=== PATIENT | male | born 1945 | race Caucasian/White ===

== ENCOUNTER 2016-08-26 08:55 | Inpatient (IN) | payer MEDICARE, BC ==
[~2016-08-26] VITALS: Ht 182.9 cm; Wt 102.2 kg
[~2016-08-26 08:55] MED LIST: ACET325S GTB; AMLO5TAB4 GTB; CHLO473M4 MM; CLON-379 PO; DEXT1DRO6 OP; DOXA2TAB61 PO; DULR PR; ENOX120D8 SQ; HYDR-3671 PO; INSU100I22 SC; LACO100T3 PO; LEVE500S9 GTB; LEVO500T72 PO; LOSA50TA2 GTB; MAGN400O4 GTB; METO-407 GTB; MULT-762 GTB; NPH SQ; ONDA4SOL2 GTB; PHEN100O4 GTB; PIPE3.374 IVPB; PSYL3.4P5 PO; SENN-36 GTB; THIA50TA2 PO; UDFER GTB; VANC1VIA16 IV
[2016-08-26] MEDS ORDERED: SOD CHLORIDE 0.9% 500 ML IV STA (09:08)
[2016-08-26] MEDS ORDERED: FAMOTIDINE 20 MG INJ INJ STA (09:08)
[2016-08-26 09:12] VITALS: Ht 182.9 cm; Wt 102.2 kg
[2016-08-26] MEDS ORDERED: NOVO3I SC (09:53)
[2016-08-26] MEDS ORDERED: LATA2.5D9 LEFT EYE (09:53)
[2016-08-26] MEDS ORDERED: HYDR-906 GTB (09:54)
[2016-08-26] MEDS ORDERED: APR50 GTB (09:56)
[2016-08-26] MEDS ORDERED: TEARS BOTH EYES (09:56)
[2016-08-26] MEDS ORDERED: FURO20TA GTB (09:57)
[2016-08-26] MEDS ORDERED: INSU100V3 IJ (09:58)
[2016-08-26] MEDS ORDERED: NPH,100V SQ (09:59)
[2016-08-26] MEDS ORDERED: GABA-526 G-TUBE (09:59)
[2016-08-26] MEDS ORDERED: GABA300C16 GTB (10:00)
[2016-08-26] MEDS ORDERED: IPRA3AMP INHALATION (10:01)
[2016-08-26] MEDS ORDERED: FLUC100T39 GTB (10:01)
[2016-08-26] MEDS ORDERED: SPIR25TA76 GTB (10:02)
[2016-08-26 10:03] LABS: ALBUMIN 3.3 g/dl (3.3-4.9)
[2016-08-26] MEDS ORDERED: ZOLP5TAB6 GTB (10:03)
[2016-08-26 10:04] LABS: INR 1.06; PROTIME 13.8 Sec (12.2-14.2); PT RATIO 1.1
[2016-08-26 10:04] LABS: CHLORIDE 100 mmol/L (97-110); POTASSIUM 4.6 mmol/L (3.5-5.1); SODIUM 141 mmol/L (135-144)
[2016-08-26] MEDS ORDERED: ASCO500C7 GTB (10:04)
[2016-08-26] MEDS ORDERED: MUPI22OI2 TOP (10:04)
[2016-08-26 10:05] LABS: PARTIAL THROMBOPLASTIN TIME 34.4 Sec (25.0-35.0)
[2016-08-26] MEDS ORDERED: CAPS42.510 TOP (10:05)
[2016-08-26 10:06] LABS: BASOPHILS % 0.3 % (0.0-2.0); EOSINOPHILS # 0.2 10^3/ul (0.0-0.5); EOSINOPHILS % 4.1 % (0.0-7.0); HEMATOCRIT 22.5 % (42.0-52.0); HEMOGLOBIN 7.7 g/dl (14.0-18.0); LYMPHOCYTES # 1.1 10^3/ul (0.8-2.9); LYMPHOCYTES % 18.9 % (15.0-51.0); MEAN CORPUSCULAR HEMOGLOBIN 32.9 pg (29.0-33.0); MEAN CORPUSCULAR HGB CONC 34.2 g/dl (32.0-37.0); MEAN CORPUSCULAR VOLUME 96.2 fl (82.0-101.0); MEAN PLATELET VOLUME 7.8 fl (7.4-10.4); MONOCYTE # 0.6 10^3/ul (0.3-0.9); MONOCYTES % 10.7 % (0.0-11.0); NEUTROPHIL # 3.9 10^3/ul (1.6-7.5); PLATELET COUNT 290 10^3/UL (140-440); RED BLOOD COUNT 2.34 10^6/ul (4.70-6.10); RED CELL DISTRIBUTION WIDTH 13.5 % (11.5-14.5); UNCORRECTED WBC 5.8 10^3/ul (4.8-10.8); WHITE BLOOD COUNT 5.8 10^3/ul (4.8-10.8)
[2016-08-26 10:06] LABS: ANION GAP 15 (8-16); ASPARTATE AMINO TRANSFERASE 23 IU/L (15-46); BILIRUBIN,INDIRECT 0.1 mg/dl (0-1.1); BILIRUBIN,TOTAL 0.1 mg/dl (0.2-1.3); CARBON DIOXIDE 31 mmol/L (21-31)
[2016-08-26 10:07] LABS: ALANINE AMINOTRANSFERASE 35 IU/L (13-69); ALKALINE PHOSPHATASE 132 IU/L (42-121); BLOOD UREA NITROGEN 51 mg/dl (7-20); GLUCOSE 251 mg/dl (70-220); TOTAL PROTEIN 6.6 g/dl (6.1-8.1)
[2016-08-26 10:07] LABS: CONDITION 1; LH ANALYZER COMMENTS 1
[2016-08-26 10:21] LABS: TROPONIN-I < 0.010 ng/ml (0.00-0.12)
[2016-08-26] MEDS ORDERED: FER325 GTB (10:40)
[2016-08-26] MEDS ORDERED: SOD CHLORIDE 0.9% 500 ML IV ONE (11:00)
[2016-08-26 11:01] LABS: HEMOGLOBIN 7.6 g/dl (14.0-18.0)
[2016-08-26] MEDS ORDERED: ONDANSETRON 4 MG INJ IV PRN (12:30)
[2016-08-26] MEDS ORDERED: ACETAMINOPHEN 325 MG TAB PO PRN (12:30)
[2016-08-26 13:12] VITALS: TEMP 98.5
--- NOTE | 2016-08-26 13:37 | ERA ---
ER Documentation Chief Complaint Date/Time DATE: 08/26/16 TIME: 13:19 Chief Complaint BROUGHT IN VIA PRIVATE AMBULANCE DUE TO LOW HGB RESULTS HPI This 71-year-old male is a chronic trach mask patient was sent in by both the [facility] & [facility]. Patient has been feeling generalized weakness and tiredness. Denies chest pain shortness of breath fever and chills. Has a chronic cough. Denies vomiting blood, denies blood in stools and dark stools. ROS All systems reviewed and are negative except as per history of present illness. Medications Home Meds Reported Medications Ferrous Sulfate* (Ferrous Sulfate*) 325 Mg Tabec, 325 MG GTB BID, TAB 08/26/16 Capsaicin (Capsaicin) 42.5 Gm Cream.gm., 1 APPLIC TOP DAILY, #1 TUB 08/26/16 Mupirocin* (Bactroban*) 2% -22 Gram Oint...g., 1 APPLIC TOP DAILY, #1 TUB SITE OF APPLICATION: 08/26/16 Ascorbic Acid* (Vitamin C*) 500 Mg Capsule.sa, 500 MG GTB DAILY, CAP 08/26/16 Zolpidem Tartrate* (Zolpidem Tartrate*) 5 Mg Tablet, 5 MG GTB QHS Y for INSOMNIA , #30 TAB 08/26/16 Spironolactone* (Aldactone*) 25 Mg Tablet, 12.5 MG GTB DAILY, #30 TAB 08/26/16 Fluconazole* (Fluconazole*) 100 Mg Tablet, 100 MG GTB DAILY, TAB 08/26/16 Ipratropium-Albuterol (Ipratropium-Albuterol) 0.5-3 Mg/3 Ml Ampul.neb, 3 ML INHALATION Q4 Y for WHEEZING AND SOB, #30 VIAL 08/26/16 Gabapentin* (Gabapentin*) 300 Mg Capsule, 300 MG GTB QHS, #60 CAP 08/26/16 Gabapentin* (Gabapentin*) 600 Mg Tablet, 600 MG G-TUBE DAILY, #60 TAB 08/26/16 Insulin NPH Human Isophane (Humulin N) 100 Unit/1 Ml Vial, 19 UNIT SQ Q8, VIAL 08/26/16 Insulin Regular, Human (Humulin R) 100 Unit/1 Ml Vial, 0 IJ SLIDING SCALE DIR , VIAL 08/26/16 Furosemide* (Lasix*) 20 Mg Tablet, 20 MG GTB DAILY, TAB 08/26/16 Hydralazine Hcl* (Hydralazine Hcl*) 50 Mg Tab, 50 MG GTB Q8, #90 TAB 08/26/16 Hypromellose* (Isopto Tears*) 15 Ml Drops, 2 DROP BOTH EYES Q4H WHILE AWAKE Y for PRN, #1 EA 08/26/16 Hydrocodone/Acetaminophen (Luverne 5-325 Tablet) 1 Each Tablet, 2 EACH GTB Q6 Y for PAIN, TAB 08/26/16 Insulin Aspart* (Novolog Insulin Pen*) 100 Unit/Ml Soln, 0 SC .SLIDING SCALE AC , EA DIRECTED 08/26/16 Latanoprost (Xalatan) 2.5 Ml Drops, 1 DROP LEFT EYE QHS, #1 BOTTLE 08/26/16 Sennosides* (Senokot*) 8.6 Mg Tablet, 1 TAB GTB DAILY Y for CONSTIPATION, TAB 06/14/16 Phenytoin* (Dilantin* Susp) 100 Mg/4 Ml Oral.susp, 250 MG GTB Q12 for 30 Days, BOTTLE 06/14/16 Ondansetron HCl (Zofran) 4 Mg/5 Ml Solution, 4 MG GTB Q8 Y for NAUSEA 06/14/16 Multivitamin (MULTI-VITAMIN DAILY) 1 Each Tablet, 1 TAB GTB DAILY, TAB 06/14/16 Metoprolol Tartrate* (Lopressor*) 100 Mg Tablet, 100 MG GTB BID, #60 TAB 06/14/16 Magnesium Hydroxide* (Milk Of Magnesia*) 400 Mg/5 Ml Oral.susp, 30 ML GTB DAILY Y for CONSTIPATION, ML 06/14/16 Losartan Potassium* (Cozaar*) 50 Mg Tablet, 50 MG GTB DAILY, #30 TAB 06/14/16 Levetiracetam* (Keppra*) 500 Mg/5 Ml Solution, 2000 MG GTB BID, BOTTLE 06/14/16 Doxazosin Mesylate* (Cardura*) 2 Mg Tablet, 2 MG PO QHS, #30 TAB 06/14/16 Chlorhexidine Gluconate (Peridex) 473 Ml Mouthwash, 10 ML MM BID, BOTTLE 06/14/16 Bisacodyl* (Bisacodyl*) 10 Mg Supp, 10 MG IL DAILY Y for CONSTIPATION, SUPP 06/14/16 Amlodipine Besylate* (Norvasc*) 5 Mg Tablet, 5 MG GTB DAILY, TAB 06/14/16 Acetaminophen* (Acetaminophen* Susp) 325 Mg/10.15 Ml Solution, 650 MG GTB Q6 Y for PAIN OR TEMP ABOVE 38C, ML 06/14/16 Discontinued Reported Medications Rvsgmyuyemav-Krhv-Newrvchf,Iso (ZOSYN 3.375 GM GALAXY BAG) 3.375 Gm/50 Ml Froz.piggy, 3.375 GM IVPB Q8, EA 06/14/16 Vancomycin Hcl (Vancocin) 1 Gm Soln, 1.5 GM IV Q12, VIAL 06/14/16 Thiamine HCl (Thiamine HCl) 50 Mg Tablet, 100 MG PO DAILY, TAB 06/14/16 Psyllium Husk-Aspartame (Metamucil Fiber Singles Packet) 3.4 Gm Powd.pack, 3.4 GM PO TID, PACKET 06/14/16 Insulin Human Nph (Novolin-N) 100 Units/Ml Susp, 16 SQ Q8 06/14/16 Levofloxacin* (Levaquin*) 500 Mg Tablet, 500 MG PO DAILY, TAB 06/14/16 Lacosamide (Vimpat) 100 Mg Tablet, 300 MG PO BID, TAB 06/14/16 Insulin Aspart (Novolog FlexPen) 100 Unit/1 Ml Insuln.pen, 0 SC SLIDING SCALE AC , EA 06/14/16 Hydralazine Hcl* (Hydralazine Hcl*) 25 Mg Tab, 25 MG PO Q8, #90 TAB 06/14/16 Ferrous Sulfate (Ferrous Sulfate) 300 Mg/5 Ml Liquid, 300 MG GTB DAILY 06/14/16 Enoxaparin Sodium* (Lovenox*) 120 Mg/0.8 Ml Disp.syrin, 110 MG SQ BID, SYR 06/14/16 Clonidine Hcl* (Clonidine Hcl*) 0.1 Mg Tab, 0.1 MG PO Q8 Y for ELEVATED BLOOD PRESSURE, TAB 06/14/16 Dextran 70/Hypromellose (Artificial Tears) 1 Each Droperette, 2 EACH OP Q4 Y for DRY EYES 06/14/16 Allergies Allergies: Coded Allergies: No Known Allergies (Unverified Allergy, Unknown, 08/26/16) PMhx/Soc History of Surgery: No Anesthesia Reaction: No Hx Neurological Disorder: Yes (seizures/CVA,peripheral neuropathy) Hx Respiratory Disorders: Yes (Resp failure,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 Neck: Full range of motion..~ No meningismus. Trachea mask in place, clean dry intact Resp: Clear to auscultation bilaterally with cough son exam Cardio: Regular rate and rhythm, no murmurs Abd: Soft, non tender, non distended. Normal bowel sounds Skin: No petechiae or rashes Back: No midline or flank tenderness Ext: No cyanosis, or edema Neur: Awake and alert and oriented 3, cranial nerves II through XII intact, no focal deficits Psych: Normal Mood and Affect Result Diagram: 08/26/16 1040 08/26/16 0948 Results 24 hrs Laboratory Tests Test 08/26/16 09:45 08/26/16 09:48 08/26/16 10:40 Activated Partial Thromboplast Time 34.4Sec Basophils # 0.010^3/ul Basophils % 0.3% Blood Morphology Comment Eosinophils # 0.210^3/ul Eosinophils % 4.1% Hematocrit 22.5% 22.0% Hemoglobin 7.7g/dl 7.6g/dl INR International Normalized Ratio 1.06 Lymphocytes # 1.110^3/ul Lymphocytes % 18.9% Mean Corpuscular Hemoglobin 32.9pg Mean Corpuscular Hemoglobin Concent 34.2g/dl Mean Corpuscular Volume 96.2fl Mean Platelet Volume 7.8fl Monocytes # 0.610^3/ul Monocytes % 10.7% Neutrophils # 3.910^3/ul Neutrophils % 66.0% Nucleated Red Blood Cells # 0.010^3/ul Nucleated Red Blood Cells % 0.0/100WBC Platelet Count 49286^3/UL Prothrombin Time 13.8Sec Prothrombin Time Ratio 1.1 Red Blood Count 2.3410^6/ul Red Cell Distribution Width 13.5% White Blood Count 5.810^3/ul Alanine Aminotransferase (ALT/SGPT) 35IU/L Albumin 3.3g/dl Albumin/Globulin Ratio 1.00 Alkaline Phosphatase 132IU/L Anion Gap 15 Aspartate Amino Transf (AST/SGOT) 23IU/L Blood Urea Nitrogen 51mg/dl Calcium Level 9.0mg/dl Carbon Dioxide Level 31mmol/L Chloride Level 100mmol/L Creatinine 1.00mg/dl Direct Bilirubin 0.00mg/dl Globulin 3.30g/dl Glucose Level 251mg/dl Indirect Bilirubin 0.1mg/dl Potassium Level 4.6mmol/L Sodium Level 141mmol/L Total Bilirubin 0.1mg/dl Total Protein 6.6g/dl Troponin I < 0.010ng/ml Current Medications Medications (Trade) Dose Ordered Sig/Nelli Route PRN Reason Start Time Stop Time Status Last Admin Dose Admin Sodium Chloride (NS) 500 ml @ 500 mls/hr Q1H STAT IV 08/26/16 09:08 08/26/16 10:07 DC 08/26/16 10:02 Famotidine 20 mg 20 mg ONCE STAT INJ 08/26/16 09:08 08/26/16 09:09 DC 08/26/16 10:02 Sodium Chloride (NS) 500 ml @ 500 mls/hr Q1H ONCE IV 08/26/16 11:00 08/26/16 11:59 DC 08/26/16 10:44 Ondansetron HCl (Zofran Inj) 4 mg BRIDGE ORDER PRN IV NAUSEA AND/OR VOMITING 08/26/16 12:30 08/27/16 12:29 Acetaminophen (Tylenol Tab) 650 mg ER BRIDGE PRN PO MILD PAIN/FEVER 08/26/16 12:30 08/27/16 12:29 Procedures/MDM 71-year-old male with acute symptomatic anemia. He was given a liter of IV fluid in the emergency room. Hemoglobin returned at 7.7 7.6. Patient has had prior hemoglobins well above 9 is also hemoglobins in the eights. He was given IV Pepcid. Patient himself is not sure why he has the anemia. Spoke with Dr. Comer who is very familiar with the patient believe he should be transfused 2 units and admitted to the hospital. He recommends MedSurg. Patient has been stable on the monitor and has no signs of acute decompensating GI bleed. Elevated BUN does give evidence that there is a GI source of bleeding. He'll be admitted for further workup of his GI bleeding. Patient did require deep suctioning one time by respiratory after which his cough improved he is feeling much better about his cough. EKG interpretation: Normal sinus rhythm rate of 86, right bundle branch block, left axis deviation, no ST-T wave changes concerning for acute ischemia surveillance monitor interpretation: Normal sinus rhythm with occasional sinus tachycardia with no other arrhythmia Critical care time 30 minutes: This includes treatment of acute symptomatically anemia with blood transfusion, multiple visits patient's bedside before and after transfusion assess status, chart review, discussion with patient and , discussion with admitting doctor, careful fluid resuscitation and monitoring for signs of fluid overload with blood transfusion. This does not include any below procedures. Departure Diagnosis: Primary Impression: Symptomatic anemia Additional Impressions: Hyperglycemia Acute GI bleeding Condition: Serious YARELI HUDDLESTON DO Aug 26, 2016 13:34
[2016-08-26 13:57] VITALS: BP 137/78; RESP 18
[2016-08-26] MEDS: ALBUTEROL/IPRATROPIUM (NEB) 3 ML AMP HHN SCH ×2 (15:17→20:33)
[2016-08-26] MEDS ORDERED: NACL 0.9% 3 ML SYG IV SCH (16:00)
[2016-08-26] MEDS ORDERED: ALBUTEROL/IPRATROPIUM (NEB) 3 ML AMP INH PRN (16:00)
[2016-08-26] MEDS: D5W-0.45 NACL + KCL 20 MEQ 1,000 ML IV SCH (16:00)
--- NOTE | 2016-08-26 16:57 | HP ---
DATE OF ADMISSION: 08/26/2016 HISTORY OF PRESENT ILLNESS: The patient is a 71-year-old gentleman patient with a past medical hist ory positive for COPD, epilepsy, congestive heart failure, hyperlipidemia, hypertension, and diabete s mellitus. He has respiratory distress with tracheostomy and dysphagia with PEG. The patient was brought to the emergency room from [facility] for hemoglobin of 7.2 noted on routine l abs. The patient also stated that he feels generalized weakness and tiredness. The patient stated that for the last week he has been able to take food p.o.; however, the patient has a gastrostomy. It was stated he was previously fed through a G-tube. The patient also had a tracheostomy; however, he was on room air. The patient also noted to have increased secretions. The patient denied any f ever or chills, denies any nausea and vomiting. The patient has a Passy-Minden valve and was able to provide a limited history. The patient was ordered blood transfusion and was given IV Pepcid, and t he patient on IV fluids, and the patient will be admitted for further evaluation and management to m edical/surgical floor. PAST MEDICAL HISTORY: Per HPI. The patient also had seizures and previous history of stroke and pe ripheral neuropathy, congestive heart failure, respiratory failure, encephalopathy. PAST SURGICAL HISTORY: The patient is status post tracheostomy, status post gastrostomy. SOCIAL HISTORY: The patient is a resident of [facility], [facility]. The patien t is a former smoker; currently does not smoke. He does not use alcohol or drugs. ALLERGIES: NO KNOWN ALLERGIES. MEDICATIONS ON ADMISSION: 1. Ferrous sulfate. 2. Capsaicin. 3. Bactroban. 4. Vitamin C. 5. Ambien. 6. Aldactone. 7. Fluconazole. 8. Albuterol. 9. Gabapentin. 10. Humulin 19 units subq q. 8 hours. 11. Lasix. 12. Hydralazine. 13. Hypromellose. 14. Gould. 15. NovoLog. 16. Tarlatan. 17. Senokot. 18. Dilantin. 19. Zofran. 20. Multivitamins. 21. Lopressor. 22. Milk of magnesia. 23. Cozaar 24. Keppra. 25. Cardura. 26. Peridex. 27. Bisacodyl. 28. Norvasc. 29. Tylenol. REVIEW OF SYSTEMS: A 12-point review of systems is negative unless what mentioned in the HPI. PHYSICAL EXAMINATION: GENERAL: Well-developed, well-nourished male who currently is awake, alert. VITAL SIGNS: Temperature is 98.6, pulse is 93, blood pressure 137/78, respiratory rate 18, oxygen s aturation 98% on cool aerosol mist 28%. HEENT: Head is atraumatic, normocephalic. PERRLA. NECK: Supple. The patient has a tracheostomy at the base of the neck with Passy-Onur valve. CHEST: Lung sounds are slightly diminished at the bases. Scattered rhonchi bilaterally. CARDIOVASCULAR: Normal S1, S2. No murmurs, gallops, clicks, rubs noted. ABDOMEN: Round, soft, nondistended, and nontender. The patient has a G-tube with intact stoma. EXTREMITIES: No edema, clubbing, cyanosis. Pulses equal bilaterally 2+. SKIN: There is no rash noted. NEUROLOGIC: The patient is awake, alert to name and situation. LABORATORY DATA: Today, CBC: White blood cells 5.8, hemoglobin 7.7, hematocrit 22.5, platelets 290 . Chemistry: Sodium is 141, potassium 4.6, chloride 100, carbon dioxide 31, anion gap 15, BUN is 5 1, creatinine 1, glucose 251, calcium 9.0, AST is 23, ALT is 35, alkaline phosphatase 132. Troponin less than 0.01. PT is 13.8. INR is 1.06. PTT is 34.4. ASSESSMENT AND PLAN: 1. Anemia, rule out gastrointestinal bleed. We will transfuse 2 units of packed red blood cells, o btain stool for OB. We will ask Dr. Troy to see the patient in gastroenterology consultation. Co ntinue patient on Protonix. 2. History of respiratory failure with tracheostomy. We will continue cool aerosol mist, continue trach care, and pulmonary toilet. 3. Congestive heart failure. Continue patient on Lasix. 4. Diabetes mellitus type 2. Continue patient's home NovoLog. 5. History of cerebrovascular accident and seizure disorder. Continue Keppra and Dilantin. 6. We will continue breathing treatment. 7. Sequential compression devices for deep venous thrombosis prophylaxis. Further recommendations based on clinical course. Plan of care discussed with Dr. Comer. Dictated By: VIRGEN MARCUS INSURANCE SALES SPECIALIST for ETHAN COMER MD SR/NTS Conf#: [id number] DID#: [id number]
--- NOTE | 2016-08-26 18:44 | CONS ---
DATE OF ADMISSION: 08/26/2016 DATE OF CONSULTATION: TYPE OF CONSULTATION: Gastroenterology. Dear Dr. Comer: Thank you for asking me to see Mr. Falcon in GI consultation. HISTORY OF PRESENT ILLNESS: As you know, the patient is a 71-year-old white gentleman who was trans ferred to the [facility] from [facility]. He has got hemog lobin of 7.2 and because of that, he is being transfused. WBC is 5214, platelet count 275. He is alert and has got tracheostomy. Other medical problems include diabetes, transient ischemic a ttacks or possible CVA, paraplegia, nonspecific heart disease, urinary tract infection in the past. He has difficulty walking. MEDICATIONS: Prior to the admission includes: 1. Bactrim 2. Fluconazole. Please review the chart for more information. He also has been on: 1. Zofran. 2. Multivitamin. 3. Senna. 4. NovoLog. 5. Norvasc. 6. Lasix. 7. Keppra. 8. Hydralazine. 9. Gabapentin. PHYSICAL EXAMINATION: GENERAL: The patient is a 71-year-old white gentleman who at this time is alert. He is status post tracheostomy. He is on ventilator. VITAL SIGNS: Pulse is 76, blood pressure is 122/82. CARDIOVASCULAR: Normal heart sounds. RESPIRATORY: Normal breath sounds. ABDOMEN: Showed a soft abdomen with no palpable masses. He has got a G-tube in place. LABORATORY WORKUP: Essentially as I mentioned earlier on. CLINICAL IMPRESSION: 1. Severe anemia due to reasons unknown etiology, rule out bleeding from the peptic ulcer disease o r gastrostomy site ulcer disease. 2. Rule out gastrointestinal malignancy. 3. Chronic obstructive pulmonary disease, respiratory failure, currently intubated through the trac heostomy. Diabetes, neuropathy, arteriosclerotic heart disease. PLAN: 1. At this time, I would recommend upper endoscopy as well as lower endoscopy. 2. Continue Protonix and continue with transfusion. Once again, doctor, thank you for this consultation. Dictated By: GANESH BOOGIE/MARIO Conf#: [id number] DID#: [id number] CC: ETHAN COMER MD;*EndCC*
[2016-08-26 19:48] VITALS: BP 140/65; RESP 16
[2016-08-26] MEDS ORDERED: GABAPENTIN 300 MG CAP GTB SCH (21:00)
[2016-08-26] MEDS: LEVETIRACETAM (100 MG/ML) 5ML CUP GTB SCH (21:22)
[2016-08-26] MEDS: PHENYTOIN (100 MG/4 ML) CUP GTB SCH (21:23)
[2016-08-26] MEDS: METOPROLOL 100 MG TAB GTB SCH (21:25)
[2016-08-26] MEDS: GABAPENTIN (50 MG/ML PO SYG) GTB SCH (21:26)
[2016-08-26] MEDS ORDERED: ZOLPIDEM 5 MG TAB GTB PRN (23:00)
[2016-08-26] MEDS: MUPIROCIN 2% 22 GM OINT TOP SCH (23:59)
[2016-08-27] MEDS: ALBUTEROL/IPRATROPIUM (NEB) 3 ML AMP HHN SCH ×4 (01:46→19:25)
[2016-08-27] MEDS: D5W-0.45 NACL + KCL 20 MEQ 1,000 ML IV SCH (02:05)
[2016-08-27 06:20] LABS: BASOPHILS % 0.5 % (0.0-2.0); EOSINOPHILS # 0.2 10^3/ul (0.0-0.5); EOSINOPHILS % 3.7 % (0.0-7.0); HEMOGLOBIN 8.6 g/dl (14.0-18.0); LYMPHOCYTES % 17.1 % (15.0-51.0); MEAN CORPUSCULAR HEMOGLOBIN 32.4 pg (29.0-33.0); MEAN CORPUSCULAR HGB CONC 34.2 g/dl (32.0-37.0); MEAN CORPUSCULAR VOLUME 94.5 fl (82.0-101.0); MEAN PLATELET VOLUME 8.1 fl (7.4-10.4); MONOCYTE # 0.6 10^3/ul (0.3-0.9); MONOCYTES % 10.1 % (0.0-11.0); NEUTROPHIL # 4.2 10^3/ul (1.6-7.5); NEUTROPHILS % 68.6 % (39.0-77.0); PLATELET COUNT 248 10^3/UL (140-440); RED BLOOD COUNT 2.64 10^6/ul (4.70-6.10); RED CELL DISTRIBUTION WIDTH 14.9 % (11.5-14.5); UNCORRECTED WBC 6.1 10^3/ul (4.8-10.8); WHITE BLOOD COUNT 6.1 10^3/ul (4.8-10.8)
[2016-08-27 06:24] LABS: POTASSIUM 4.3 mmol/L (3.5-5.1)
[2016-08-27 06:26] LABS: CREATININE 0.74 mg/dl (0.61-1.24)
[2016-08-27 06:27] LABS: CALCIUM 8.6 mg/dl (8.4-10.2)
[2016-08-27 06:46] LABS: CONDITION 1; LH ANALYZER COMMENTS 1
[2016-08-27 07:38] VITALS: BP 154/67; RESP 22
[2016-08-27] MEDS ORDERED: GABAPENTIN 300 MG CAP PEG SCH (09:00)
[2016-08-27] MEDS: ASCORBIC ACID 500 MG TAB GTB SCH (10:34)
[2016-08-27] MEDS: FLUCONAZOLE 100 MG TAB GTB SCH (10:34)
[2016-08-27] MEDS: LEVETIRACETAM (100 MG/ML) 5ML CUP GTB SCH ×2 (10:34→21:04)
[2016-08-27] MEDS: PHENYTOIN (100 MG/4 ML) CUP GTB SCH ×2 (10:35→21:02)
[2016-08-27] MEDS: FUROSEMIDE 20 MG TAB GTB SCH (10:36)
[2016-08-27] MEDS: AMLODIPINE 5 MG TAB GTB SCH (10:36)
[2016-08-27] MEDS: SPIRONOLACTONE 25 MG TAB GTB SCH (10:36)
[2016-08-27] MEDS: METOPROLOL 100 MG TAB GTB SCH ×2 (10:36→21:04)
[2016-08-27] MEDS: MUPIROCIN 2% 22 GM OINT TOP SCH (10:37)
[2016-08-27 10:57] VITALS: BP 146/64; PULSE 84
[2016-08-27] MEDS ORDERED: DEXTROSE 50% 50 ML SYRINGE IV PRN ×2 (11:30)
[2016-08-27] MEDS ORDERED: GLUCOSE GEL 15 GRAM TUBE PO PRN ×2 (11:30)
[2016-08-27] MEDS ORDERED: GLUCAGON 1 MG INJ IM PRN (11:30)
[2016-08-27] MEDS ORDERED: ONDANSETRON (2 MG/2.5 ML PO SYG) GTB PRN (11:30)
[2016-08-27] MEDS ORDERED: HYDROCODONE/APAP (5/325) TAB GTB PRN (11:30)
[2016-08-27] MEDS ORDERED: MAGNESIUM HYDROXIDE 30ML CUP GTB PRN (11:30)
[2016-08-27] MEDS ORDERED: GLUCOSE GEL 15 GRAM TUBE BUCCAL PRN (11:30)
[2016-08-27] MEDS ORDERED: BISACODYL 10 MG SUPP PR PRN (11:30)
[2016-08-27] MEDS ORDERED: SENNA TAB GTB PRN (11:30)
[2016-08-27] MEDS ORDERED: HYPROMELLOSE 0.5% 15 ML OPH BOTH EYES PRN (11:30)
--- NOTE | 2016-08-27 12:42 | RADRPT ---
PROCEDURE: XR Chest. CLINICAL INDICATION: Shortness of breath. TECHNIQUE: Single frontal view. COMPARISON: 07/20/2016. FINDINGS: The tracheostomy tube is in satisfactory position. There is mild atelectasis at the left lung base. Mild pulmonary edema is unchanged. The lungs are otherwise clear. The heart is enlarged. There is calcification in the aorta consistent with atherosclerosis. There is no pleural effusion. There is no pneumothorax. IMPRESSION: 1. Mild atelectasis at the left lung base. 2. No other change from 07/20/2016. RPTAT: QQ .Julius Gupta MD, MD Date Time Electronically viewed and signed by .Julius Gupta MD, on 08/27/2016 12:42 .R/
[2016-08-27] MEDS: GABAPENTIN (50 MG/ML PO SYG) GTB SCH ×2 (13:11→22:35)
[2016-08-27] MEDS: INSULIN ASPART [NOVOLOG] 3 ML PEN SC SCH ×3 (13:20→21:08)
[2016-08-27] MEDS: 1/2 NS + KCL 20 MEQ 1,000 ML IV SCH (13:21)
[2016-08-27 13:23] VITALS: BP 140/65; PULSE 77
--- NOTE | 2016-08-27 17:15 | CONS ---
DATE OF ADMISSION: 08/26/2016 DATE OF CONSULTATION: Patient has a severe anemia. No history of vomiting, nor bright red bleeding from the rectum. PHYSICAL EXAMINATION: GENERAL: The patient is on a trach. He is alert, not in distress. ABDOMEN: Showed a G-tube in place. CLINICAL IMPRESSION: Severe anemia, rule out peptic ulcer disease, rule out malignancy of the gastr ointestinal tract. PLAN: EGD and colonoscopy on Monday. Dictated By: GANESH BOOGIE/MARIO Conf#: [id number] DID#: [id number]
[2016-08-27] MEDS ORDERED: PEG/ELECTROLYTES 4L BTL PO ONE (18:30)
[2016-08-27 20:05] VITALS: BP 163/71; RESP 20
[2016-08-27] MEDS: LATANOPROST 0.005% 2.5 ML OPH LEFT EYE SCH (21:05)
[2016-08-27] MEDS: FERROUS SULFATE (EC) 325 MG TAB PO SCH (21:05)
[2016-08-27] MEDS: CHLORHEXIDINE GLUCONATE 15 ML UD CUP MM SCH (21:05)
[2016-08-27] MEDS: DOXAZOSIN 2 MG TAB PO SCH (21:05)
[2016-08-27] MEDS: INSULIN GLARGINE [LANtus] 3 ML PEN SC SCH (21:07)
[2016-08-28] VITALS (8 sets, daily range): BP systolic 127–174; BP diastolic 58–97; PULSE 76–88; RESP 16–20
[2016-08-28] MEDS: ALBUTEROL/IPRATROPIUM (NEB) 3 ML AMP HHN SCH ×4 (01:49→20:33)
[2016-08-28] MEDS: ACCUCHECK XX SCH (02:00)
[2016-08-28] MEDS: 1/2 NS + KCL 20 MEQ 1,000 ML IV SCH ×2 (03:07→16:36)
[2016-08-28] MEDS: INSULIN ASPART [NOVOLOG] 3 ML PEN SC SCH ×4 (08:26→21:24)
[2016-08-28] MEDS: FERROUS SULFATE (EC) 325 MG TAB PO SCH ×2 (09:41→21:19)
[2016-08-28] MEDS: FLUCONAZOLE 100 MG TAB GTB SCH (09:41)
[2016-08-28] MEDS: MULTIVITAMINS THERAPEUTIC TAB GTB SCH (09:41)
[2016-08-28] MEDS: ASCORBIC ACID 500 MG TAB GTB SCH (09:41)
[2016-08-28] MEDS: AMLODIPINE 5 MG TAB GTB SCH (09:41)
[2016-08-28] MEDS: FUROSEMIDE 20 MG TAB GTB SCH (09:42)
[2016-08-28] MEDS: LOSARTAN 50 MG TAB GTB SCH (09:42)
[2016-08-28] MEDS: CHLORHEXIDINE GLUCONATE 15 ML UD CUP MM SCH ×2 (09:43→21:17)
[2016-08-28] MEDS: LEVETIRACETAM (100 MG/ML) 5ML CUP GTB SCH ×2 (09:43→21:17)
[2016-08-28] MEDS: PHENYTOIN (100 MG/4 ML) CUP GTB SCH ×2 (09:43→21:19)
[2016-08-28] MEDS: GABAPENTIN (50 MG/ML PO SYG) GTB SCH ×2 (09:45→21:48)
[2016-08-28] MEDS: SPIRONOLACTONE 25 MG TAB GTB SCH (09:45)
[2016-08-28] MEDS: METOPROLOL 100 MG TAB GTB SCH ×2 (09:47→21:19)
[2016-08-28] MEDS: MUPIROCIN 2% 22 GM OINT TOP SCH (09:58)
--- NOTE | 2016-08-28 11:10 | PN ---
Date/Time of Note Date/Time of Note DATE: 08/28/16 TIME: 10:59 Assessment/Plan Lines/Catheters IV C[facility]ter Type (from [facility]): Peripheral IV Urinary Cath still in place: Yes Assessment/Plan Assessment/Plan 1. Anemia, rule out gastrointestinal bleed. We will transfuse 2 units of packed red blood cells, obtain stool for OB. We will ask Dr. Troy to see the patient in gastroenterology consultation. Continue patient on Protonix. 2. History of respiratory failure with tracheostomy. We will continue cool aerosol mist, continue trach care, and pulmonary toilet. 3. Congestive heart failure. Continue patient on Lasix. 4. Diabetes mellitus type 2. Continue patient's home NovoLog. 5. History of cerebrovascular accident and seizure disorder. Continue Keppra and Dilantin. 6. We will continue breathing treatment. 7. Sequential compression devices for deep venous thrombosis prophylaxis. Further recommendations based on clinical course. Plan of care discussed with Dr. Comer. Subjective 24 Hr Interval Summary Free Text/Dictation LATE ENTRY- 08/27/2016. NAD, Endoscopy cancelled today. no obvious bleeding noted. dw staff. Constitutional: requiring IVF, requiring O2 Exam/Review of Systems Vital Signs Vitals Vital Signs Date Time Temp Pulse Resp B/P Pulse Ox O2 Delivery O2 Flow Rate FiO2 08/28/16 10:03 88 149/67 08/28/16 08:46 20 98 Aerosol 28 T Tube 08/28/16 08:01 98.7 08/28/16 01:50 5.0 Intake and Output 08/27/16 08/27/16 08/28/16 15:00 23:00 07:00 Intake Total 595 ml 2370 ml 604 ml Output Total 900 ml 1000 ml Balance 595 ml 1470 ml -396 ml Exam Constitutional: non-verbal Psych: confusion Eyes: nl sclera ENMT: nl external ears & nose Neck: non-tender Respiratory: diminished breath sounds Cardiovascular: nl pulses Gastrointestinal: non-tender, other, soft Musculoskeletal: other Extremities: normal pulses Neurological: lethargic Lymph: nontender Results Result Diagram: 08/27/16 0520 08/27/16 0455 Results 24 hrs Laboratory Tests Test 08/27/16 11:52 08/27/16 17:13 08/27/16 21:01 08/28/16 02:58 Bedside Glucose 274 H 257 H 241 H 208 Test 08/28/16 07:47 Bedside Glucose 211 Medications Medications Current Medications Amlodipine Besylate (Norvasc) 5 mg DAILY GTB Last administered on 08/28/16 09: 41; Admin Dose 5 MG; Start 08/27/16 at 09:00 Ascorbic Acid (Vitamin C) 500 mg DAILY GTB Last administered on 08/28/16 09:41 ; Admin Dose 500 MG; Start 08/27/16 at 09:00 Fluconazole (Diflucan) 100 mg DAILY GTB Last administered on 08/28/16 09:41; Admin Dose 100 MG; Start 08/27/16 at 09:00 Furosemide (Lasix) 20 mg DAILY GTB Last administered on 08/28/16 09:42; Admin Dose 20 MG; Start 08/27/16 at 09:00 Levetiracetam (Keppra Liquid) 2,000 mg BID GTB Last administered on 08/28/16 09:43; Admin Dose 2,000 MG; Start 08/26/16 at 21:00 Metoprolol Tartrate (Lopressor) 100 mg BID GTB Last administered on 08/28/16 09:47; Admin Dose 100 MG; Start 08/26/16 at 21:00 Mupirocin (Bactroban) APPLY TO NARES DAILY TOP Last administered on 08/28/16 09:58; Admin Dose 1 APPLIC; Start 08/26/16 at 23:59 Phenytoin (Dilantin Susp Cup) 250 mg Q12 GTB Last administered on 08/28/16 09: 43; Admin Dose 250 MG; Start 08/26/16 at 21:00 Spironolactone (Aldactone) 12.5 mg DAILY GTB Last administered on 08/28/16 09: 45; Admin Dose 12.5 MG; Start 08/27/16 at 09:00 Gabapentin (Neurontin Liquid) 300 mg QHS GTB Last administered on 08/27/16 22: 35; Admin Dose 300 MG; Start 08/26/16 at 21:00 Gabapentin (Neurontin Liquid) 600 mg DAILY GTB Last administered on 08/28/16 09:45; Admin Dose 600 MG; Start 08/27/16 at 09:00 Acetaminophen (Tylenol Liquid) 650 mg Q6 PRN GTB PAIN OR TEMP ABOVE 38C; Start 08/27/16 at 11:30 Bisacodyl (Dulcolax Supp) 10 mg DAILY PRN ND CONSTIPATION; Start 08/27/16 at 11 :30 Chlorhexidine Gluconate (Peridex) 10 ml BID MM Last administered on 08/28/16 09:43; Admin Dose 10 ML; Start 08/27/16 at 21:00 Doxazosin Mesylate (Cardura) 2 mg QHS PO Last administered on 08/27/16 21:05; Admin Dose 2 MG; Start 08/27/16 at 21:00 Ferrous Sulfate (Ferrous Sulfate (Ec)) 325 mg BID PO Last administered on 09:41; Admin Dose 325 MG; Start 08/27/16 at 21:00 Hydralazine HCl (Apresoline) 50 mg Q8 GTB Last administered on 08/28/16 05:25 ; Admin Dose 50 MG; Start 08/27/16 at 14:00 Acetaminophen/ Hydrocodone Bitart ([place] (5/325)) 1 tab Q6 PRN GTB PAIN; Start 08/27/16 at 11:30 Latanoprost (Xalatan) 1 drop QHS LEFT EYE Last administered on 08/27/16 21:05 ; Admin Dose 1 DROP; Start 08/27/16 at 21:00 Losartan Potassium (Cozaar) 50 mg DAILY GTB Last administered on 08/28/16 09: 42; Admin Dose 50 MG; Start 08/28/16 at 09:00 Magnesium Hydroxide (Milk Of Mag) 30 ml DAILY PRN GTB CONSTIPATION; Start 08/27 at 11:30 Multivitamins Therapeutic (Theragran) 1 tab DAILY GTB Last administered on 08/28 09:41; Admin Dose 1 TAB; Start 08/28/16 at 09:00 Ondansetron HCl (Zofran (Ped)) 4 mg Q8 PRN GTB NAUSEA; Start 08/27/16 at 11:30 Senna (Senokot) 1 tab DAILY PRN GTB CONSTIPATION; Start 08/27/16 at 11:30 Zolpidem Tartrate (Ambien) 5 mg QHS PRN GTB INSOMNIA; Start 08/27/16 at 11:30 Diagnostic Test (Pha) (Accucheck) 1 ea 02 XX ; Start 08/28/16 at 02:00 Insulin Glargine (Lantus) 10 unit QHS SC Last administered on 08/27/16 21:07; Admin Dose 10 UNIT; Start 08/27/16 at 21:00 Miscellaneous Information 1 ea NOTE XX ; Start 08/27/16 at 11:30 Glucose (Glutose) 15 gm Q15M PRN PO DECREASED GLUCOSE; Start 08/27/16 at 11:30 Glucose (Glutose) 22.5 gm Q15M PRN PO DECREASED GLUCOSE; Start 08/27/16 at 11: 30 Dextrose (D50w Syringe) 25 ml Q15M PRN IV DECREASED GLUCOSE; Start 08/27/16 at 11:30 Dextrose (D50w Syringe) 50 ml Q15M PRN IV DECREASED GLUCOSE; Start 08/27/16 at 11:30 Glucagon (Glucagen) 1 mg Q15M PRN IM DECREASED GLUCOSE; Start 08/27/16 at 11:30 Glucose 15 gm 15 gm Q15M PRN BUCCAL DECREASED GLUCOSE; Start 08/27/16 at 11:30 Potassium Chloride/Sodium Chloride (1/2 NS + KCl 20 Meq) 1,000 ml @ 70 mls/hr [id number] IV Last administered on 08/28/16 03:07; Admin Dose 70 MLS/HR; Start at 12:00 MOI VIDAL Aug 28, 2016 11:10
--- NOTE | 2016-08-28 11:12 | PN ---
Date/Time of Note Date/Time of Note DATE: 08/28/16 TIME: 11:11 Assessment/Plan VTE Prophylaxis VTE Prophylaxis Intervention: SCD's Lines/Catheters IV Catheter Type (from Nrs): Peripheral IV Urinary Cath still in place: Yes Assessment/Plan Assessment/Plan 1. Anemia, rule out gastrointestinal bleed. We will transfuse 2 units of packed red blood cells, obtain stool for OB. We will ask Dr. Troy to see the patient in gastroenterology consultation. Continue patient on Protonix. 2. History of respiratory failure with tracheostomy. We will continue cool aerosol mist, continue trach care, and pulmonary toilet. 3. Congestive heart failure. Continue patient on Lasix. 4. Diabetes mellitus type 2. Continue patient's home NovoLog. 5. History of cerebrovascular accident and seizure disorder. Continue Keppra and Dilantin. 6. We will continue breathing treatment. 7. Sequential compression devices for deep venous thrombosis prophylaxis. Further recommendations based on clinical course. Plan of care discussed with Dr. Comer. Subjective 24 Hr Interval Summary Constitutional: requiring IVF, requiring O2 Exam/Review of Systems Vital Signs Vitals Vital Signs Date Time Temp Pulse Resp B/P Pulse Ox O2 Delivery O2 Flow Rate FiO2 08/28/16 10:03 88 149/67 08/28/16 08:46 20 98 Aerosol 28 T Tube 08/28/16 08:01 98.7 08/28/16 01:50 5.0 Intake and Output 08/27/16 08/27/16 08/28/16 15:00 23:00 07:00 Intake Total 595 ml 2370 ml 604 ml Output Total 900 ml 1000 ml Balance 595 ml 1470 ml -396 ml Exam Constitutional: alert, well developed Psych: nl mood/affect Eyes: PERRL, nl sclera ENMT: nl external ears & nose Neck: non-tender Respiratory: diminished breath sounds Cardiovascular: nl pulses Gastrointestinal: non-tender, soft Musculoskeletal: nl extremities to inspection Neurological: lethargic Lymph: nontender Results Result Diagram: 08/27/16 0520 08/27/16 0455 Results 24 hrs Laboratory Tests Test 08/27/16 11:52 08/27/16 17:13 08/27/16 21:01 08/28/16 02:58 Bedside Glucose 274 H 257 H 241 H 208 Test 08/28/16 07:47 Bedside Glucose 211 Medications Medications Current Medications Amlodipine Besylate (Norvasc) 5 mg DAILY GTB Last administered on 08/28/16 09: 41; Admin Dose 5 MG; Start 08/27/16 at 09:00 Ascorbic Acid (Vitamin C) 500 mg DAILY GTB Last administered on 08/28/16 09:41 ; Admin Dose 500 MG; Start 08/27/16 at 09:00 Fluconazole (Diflucan) 100 mg DAILY GTB Last administered on 08/28/16 09:41; Admin Dose 100 MG; Start 08/27/16 at 09:00 Furosemide (Lasix) 20 mg DAILY GTB Last administered on 08/28/16 09:42; Admin Dose 20 MG; Start 08/27/16 at 09:00 Levetiracetam (Keppra Liquid) 2,000 mg BID GTB Last administered on 08/28/16 09:43; Admin Dose 2,000 MG; Start 08/26/16 at 21:00 Metoprolol Tartrate (Lopressor) 100 mg BID GTB Last administered on 08/28/16 09:47; Admin Dose 100 MG; Start 08/26/16 at 21:00 Mupirocin (Bactroban) APPLY TO NARES DAILY TOP Last administered on 08/28/16 09:58; Admin Dose 1 APPLIC; Start 08/26/16 at 23:59 Phenytoin (Dilantin Susp Cup) 250 mg Q12 GTB Last administered on 08/28/16 09: 43; Admin Dose 250 MG; Start 08/26/16 at 21:00 Spironolactone (Aldactone) 12.5 mg DAILY GTB Last administered on 08/28/16 09: 45; Admin Dose 12.5 MG; Start 08/27/16 at 09:00 Gabapentin (Neurontin Liquid) 300 mg QHS GTB Last administered on 08/27/16 22: 35; Admin Dose 300 MG; Start 08/26/16 at 21:00 Gabapentin (Neurontin Liquid) 600 mg DAILY GTB Last administered on 08/28/16 09:45; Admin Dose 600 MG; Start 08/27/16 at 09:00 Acetaminophen (Tylenol Liquid) 650 mg Q6 PRN GTB PAIN OR TEMP ABOVE 38C; Start 08/27/16 at 11:30 Bisacodyl (Dulcolax Supp) 10 mg DAILY PRN [place] CONSTIPATION; Start 08/27/16 at 11 :30 Chlorhexidine Gluconate (Peridex) 10 ml BID MM Last administered on 08/28/16 09:43; Admin Dose 10 ML; Start 08/27/16 at 21:00 Doxazosin Mesylate (Cardura) 2 mg QHS PO Last administered on 08/27/16 21:05; Admin Dose 2 MG; Start 08/27/16 at 21:00 Ferrous Sulfate (Ferrous Sulfate (Ec)) 325 mg BID PO Last administered on 09:41; Admin Dose 325 MG; Start 08/27/16 at 21:00 Hydralazine HCl (Apresoline) 50 mg Q8 GTB Last administered on 08/28/16 05:25 ; Admin Dose 50 MG; Start 08/27/16 at 14:00 Acetaminophen/ Hydrocodone Bitart ([place] (5/325)) 1 tab Q6 PRN GTB PAIN; Start 08/27/16 at 11:30 Latanoprost (Xalatan) 1 drop QHS LEFT EYE Last administered on 08/27/16 21:05 ; Admin Dose 1 DROP; Start 08/27/16 at 21:00 Losartan Potassium (Cozaar) 50 mg DAILY GTB Last administered on 08/28/16 09: 42; Admin Dose 50 MG; Start 08/28/16 at 09:00 Magnesium Hydroxide (Milk Of Mag) 30 ml DAILY PRN GTB CONSTIPATION; Start 08/27 at 11:30 Multivitamins Therapeutic (Theragran) 1 tab DAILY GTB Last administered on 08/28 09:41; Admin Dose 1 TAB; Start 08/28/16 at 09:00 Ondansetron HCl (Zofran (Ped)) 4 mg Q8 PRN GTB NAUSEA; Start 08/27/16 at 11:30 Senna (Senokot) 1 tab DAILY PRN GTB CONSTIPATION; Start 08/27/16 at 11:30 Zolpidem Tartrate (Ambien) 5 mg QHS PRN GTB INSOMNIA; Start 08/27/16 at 11:30 Diagnostic Test (Pha) (Accucheck) 1 ea 02 XX ; Start 08/28/16 at 02:00 Insulin Glargine (Lantus) 10 unit QHS SC Last administered on 08/27/16 21:07; Admin Dose 10 UNIT; Start 08/27/16 at 21:00 Miscellaneous Information 1 ea NOTE XX ; Start 08/27/16 at 11:30 Glucose (Glutose) 15 gm Q15M PRN PO DECREASED GLUCOSE; Start 08/27/16 at 11:30 Glucose (Glutose) 22.5 gm Q15M PRN PO DECREASED GLUCOSE; Start 08/27/16 at 11: 30 Dextrose (D50w Syringe) 25 ml Q15M PRN IV DECREASED GLUCOSE; Start 08/27/16 at 11:30 Dextrose (D50w Syringe) 50 ml Q15M PRN IV DECREASED GLUCOSE; Start 08/27/16 at 11:30 Glucagon (Glucagen) 1 mg Q15M PRN IM DECREASED GLUCOSE; Start 08/27/16 at 11:30 Glucose 15 gm 15 gm Q15M PRN BUCCAL DECREASED GLUCOSE; Start 08/27/16 at 11:30 Potassium Chloride/Sodium Chloride (1/2 NS + KCl 20 Meq) 1,000 ml @ 70 mls/hr [id number] IV Last administered on 08/28/16 03:07; Admin Dose 70 MLS/HR; Start at 12:00 MOI VIDAL Aug 28, 2016 11:12
[2016-08-28 12:35] LABS: BASOPHILS % 0.7 % (0.0-2.0); EOSINOPHILS # 0.3 10^3/ul (0.0-0.5); EOSINOPHILS % 4.5 % (0.0-7.0); HEMATOCRIT 26.1 % (42.0-52.0); HEMOGLOBIN 8.8 g/dl (14.0-18.0); LYMPHOCYTES % 16.6 % (15.0-51.0); MEAN CORPUSCULAR HEMOGLOBIN 32.1 pg (29.0-33.0); MEAN CORPUSCULAR HGB CONC 33.8 g/dl (32.0-37.0); MEAN CORPUSCULAR VOLUME 94.7 fl (82.0-101.0); MEAN PLATELET VOLUME 7.6 fl (7.4-10.4); MONOCYTE # 0.6 10^3/ul (0.3-0.9); MONOCYTES % 9.4 % (0.0-11.0); NEUTROPHIL # 4.1 10^3/ul (1.6-7.5); NEUTROPHILS % 68.8 % (39.0-77.0); PLATELET COUNT 247 10^3/UL (140-440); RED BLOOD COUNT 2.76 10^6/ul (4.70-6.10); UNCORRECTED WBC 5.9 10^3/ul (4.8-10.8); WHITE BLOOD COUNT 5.9 10^3/ul (4.8-10.8)
[2016-08-28 12:43] LABS: CONDITION 1
[2016-08-28 12:45] LABS: POTASSIUM 4.8 mmol/L (3.5-5.1)
[2016-08-28 12:48] LABS: CALCIUM 8.3 mg/dl (8.4-10.2); CREATININE 0.62 mg/dl (0.61-1.24)
[2016-08-28] MEDS ORDERED: POTASSIUM CHLORIDE IVPB ONE (14:30)
[2016-08-28] MEDS ORDERED: NACL IVPB ONE (14:30)
[2016-08-28] MEDS ORDERED: DEXTROSE IVPB ONE (14:30)
[2016-08-28] MEDS ORDERED: LORAZEPAM 2 MG INJ IV STA (16:48)
[2016-08-28] MEDS ORDERED: LORAZEPAM 2 MG INJ IV PRN (18:00)
--- NOTE | 2016-08-28 18:57 | CONS ---
DATE OF ADMISSION: 08/28/2016 DATE OF CONSULTATION: CHIEF COMPLAINT: Anemia. REASON FOR CONSULTATION: Rule out gastrointestinal causes of anemia. HISTORY OF PRESENT ILLNESS: The patient was explained to undergo upper endoscopy, lower endoscopy i n the past few days and has agreed. However, today he is not willing to undergo endoscopy for the t jane being. PHYSICAL EXAMINATION: GENERAL: The patient is a 71-year-old white gentleman who at this time is alert. NECK: He has a tracheostomy. VITAL SIGNS: Pulse is 82, blood pressure 128/86. CARDIOVASCULAR: Normal heart sounds. RESPIRATORY: Normal breath sounds status post tracheostomy. ABDOMEN: Showed evidence of a gastrostomy. CLINICAL IMPRESSION: Severe anemia, rule out gastrointestinal causes. PLAN: At this time, wait until the patient is ready for upper endoscopy and lower endoscopy. Once again, doctor, thank you for this consultation. Dictated By: GANESH RAMOS MD NC/NTS Conf#: [id number] DID#: [id number] CC: ETHAN DELONG MD; GANESH RAMOS MD;*EndCC*
[2016-08-28] MEDS: INSULIN GLARGINE [LANtus] 3 ML PEN SC SCH (21:24)
[2016-08-28] MEDS: LATANOPROST 0.005% 2.5 ML OPH LEFT EYE SCH (21:49)
[2016-08-28] MEDS: ZOLPIDEM 5 MG TAB GTB PRN (22:55)
[2016-08-28] MEDS: DOXAZOSIN 2 MG TAB PO SCH (23:01)
[2016-08-28] MEDS: ACETAMINOPHEN 650MG/20.3ML CUP GTB PRN (23:06)
[2016-08-29] VITALS (11 sets, daily range): BP systolic 117–144; BP diastolic 58–62; PULSE 74–90; RESP 16–20
[2016-08-29] MEDS: ALBUTEROL/IPRATROPIUM (NEB) 3 ML AMP HHN SCH ×4 (01:43→19:50)
[2016-08-29] MEDS: ACCUCHECK XX SCH (03:00)
[2016-08-29] MEDS: 1/2 NS + KCL 20 MEQ 1,000 ML IV SCH ×2 (04:14→21:12)
[2016-08-29 05:39] LABS: BASOPHILS % 0.5 % (0.0-2.0); EOSINOPHILS # 0.3 10^3/ul (0.0-0.5); HEMATOCRIT 25.4 % (42.0-52.0); HEMOGLOBIN 8.7 g/dl (14.0-18.0); LYMPHOCYTES # 1.1 10^3/ul (0.8-2.9); MEAN CORPUSCULAR HEMOGLOBIN 32.2 pg (29.0-33.0); MEAN CORPUSCULAR HGB CONC 34.3 g/dl (32.0-37.0); MEAN PLATELET VOLUME 6.8 fl (7.4-10.4); MONOCYTE # 0.7 10^3/ul (0.3-0.9); MONOCYTES % 10.2 % (0.0-11.0); NEUTROPHIL # 4.5 10^3/ul (1.6-7.5); NEUTROPHILS % 68.3 % (39.0-77.0); PLATELET COUNT 252 10^3/UL (140-440); RED CELL DISTRIBUTION WIDTH 14.1 % (11.5-14.5); UNCORRECTED WBC 6.6 10^3/ul (4.8-10.8); WHITE BLOOD COUNT 6.6 10^3/ul (4.8-10.8)
[2016-08-29 05:40] LABS: CONDITION 1
[2016-08-29 06:27] LABS: CREATININE 0.71 mg/dl (0.61-1.24)
[2016-08-29 06:28] LABS: CALCIUM 8.5 mg/dl (8.4-10.2)
[2016-08-29] MEDS: PHENYTOIN (100 MG/4 ML) CUP GTB SCH ×2 (09:40→21:26)
[2016-08-29] MEDS: CHLORHEXIDINE GLUCONATE 15 ML UD CUP MM SCH ×2 (09:40→21:27)
[2016-08-29] MEDS: LEVETIRACETAM (100 MG/ML) 5ML CUP GTB SCH ×2 (09:40→21:27)
[2016-08-29] MEDS: FLUCONAZOLE 100 MG TAB GTB SCH (09:41)
[2016-08-29] MEDS: AMLODIPINE 5 MG TAB GTB SCH (09:41)
[2016-08-29] MEDS: FERROUS SULFATE (EC) 325 MG TAB PO SCH ×2 (09:41→21:27)
[2016-08-29] MEDS: ASCORBIC ACID 500 MG TAB GTB SCH (09:41)
[2016-08-29] MEDS: SPIRONOLACTONE 25 MG TAB GTB SCH (09:41)
[2016-08-29] MEDS: MULTIVITAMINS THERAPEUTIC TAB GTB SCH (09:41)
[2016-08-29] MEDS: FUROSEMIDE 20 MG TAB GTB SCH (09:42)
[2016-08-29] MEDS: METOPROLOL 100 MG TAB GTB SCH ×2 (09:42→21:28)
[2016-08-29] MEDS: LOSARTAN 50 MG TAB GTB SCH (09:42)
[2016-08-29] MEDS: GABAPENTIN (50 MG/ML PO SYG) GTB SCH ×2 (09:42→22:02)
[2016-08-29] MEDS: MUPIROCIN 2% 22 GM OINT TOP SCH (09:43)
[2016-08-29] MEDS: INSULIN ASPART [NOVOLOG] 3 ML PEN SC SCH ×4 (09:53→21:55)
[2016-08-29] MEDS: FUROSEMIDE 40 MG INJ IV SCH (14:38)
[2016-08-29] MEDS: CEFEPIME 2GM/50 ML (PMX) 50 ML IVPB SCH ×2 (15:21→22:04)
--- NOTE | 2016-08-29 19:47 | CONS ---
DATE OF ADMISSION: 08/28/2016 DATE OF CONSULTATION: TYPE OF CONSULTATION: Pulmonary. REASON FOR CONSULTATION: Shortness of breath. Thank you, Dr. Comer, for this consultation. HISTORY OF PRESENT ILLNESS: This is a 71-year-old gentleman with history of chronic respiratory traci lure with tracheostomy, transferred from [facility] facility for increasing secretions, shortne ss of breath, orthopnea, PND, now found to have moderate oral secretions from trach site, currently being worked up for significant anemia requiring endoscopy and/or colonoscopy soon. Since admission , the patient has had increasing secretions via tracheostomy tube, although he is requesting use of Passy-Onur valve. PAST MEDICAL HISTORY: Congestive cardiac failure, type 2 diabetes, history of CVA, seizure disorder , history of respiratory failure, tracheostomy, history of anemia. MEDICATIONS: Per chart. ALLERGIES: NONE. SOCIAL HISTORY: Nonsmoker, no alcohol, no history of drug use. FAMILY HISTORY: Noncontributory. SYSTEMS REVIEW: A 12-point review of systems was negative other than that mentioned above. PHYSICAL EXAMINATION: GENERAL: Chronically ill appearing gentleman, comfortable at rest, no acute distress. VITAL SIGNS: Currently afebrile, pulse is 87, blood pressure 134/60, O2 saturation 98% on 5 liters nasal cannula. NECK: Supple. No JVD or lymphadenopathy. CARDIAC: S1, S2, no added sounds or murmurs. CHEST: Diminished air entry bilaterally. ABDOMEN: Soft, nontender. LABORATORY DATA: White count 6.6, hemoglobin 8.7. Chemistry within normal limits. IMPRESSION AND PLAN: 1. Anemia of unclear etiology, pending further workup. 2. Possible urinary tract infection. 3. Probable tracheobronchitis. 4. Chronic respiratory failure. 5. Pulmonary edema with congestive heart failure. 6. History of chronic respiratory failure. The patient will require: 1. Sputum studies. 2. Broad-spectrum antibiotics. 3. Gastrointestinal evaluation. 4. DVT and GI prophylaxis. Dictated By: DONN CHILDS/MARIO Conf#: [id number] DID#: [id number]
[2016-08-29] MEDS: DOXAZOSIN 2 MG TAB PO SCH (21:27)
[2016-08-29] MEDS: INSULIN GLARGINE [LANtus] 3 ML PEN SC SCH (21:54)
[2016-08-29] MEDS: LATANOPROST 0.005% 2.5 ML OPH LEFT EYE SCH (21:56)
--- NOTE | 2016-08-29 22:36 | PN ---
Date/Time of Note Date/Time of Note DATE: 08/29/16 TIME: 22:29 Assessment/Plan VTE Prophylaxis VTE Prophylaxis Intervention: SCD's Lines/Catheters IV Catheter Type (from Nrs): Peripheral IV Central line still needed: Yes Urinary Cath still in place: Yes Reason Cath still needed: urinary retention Assessment/Plan Chief Complaint/Hosp Course ASSESSMENT AND PLAN: 1. Anemia, rule out gastrointestinal bleed. s/p transfusion of packed red blood cells, stool for OB is negative. Dr. Troy is following in gastroenterology consultation. Continue patient on Protonix. Pt refused endoscopy. 2. History of respiratory failure with tracheostomy. Continue cool aerosol mist, continue trach care, and pulmonary toilet. Dr Mello is following in pulm. consult. 3. Congestive heart failure. Continue patient on Lasix. 4. Diabetes mellitus type 2. Continue Lantus and NovoLog. 5. History of cerebrovascular accident and seizure disorder. Continue Keppra and Dilantin. 6. Low grade fever, MCKEON culture, continue Cefepime. Sequential compression devices for deep venous thrombosis prophylaxis. Further recommendations based on clinical course. Plan of care discussed with Dr. Fan Problems: Subjective 24 Hr Interval Summary Free Text/Dictation Pt is awake, alert, refused endoscopy. Exam/Review of Systems Vital Signs Vitals Vital Signs Date Time Temp Pulse Resp B/P Pulse Ox O2 Delivery O2 Flow Rate FiO2 08/29/16 21:04 87 08/29/16 20:13 100.5 16 144/61 96 08/29/16 19:54 5.0 28 08/29/16 19:52 Aerosol T Tube Intake and Output 08/28/16 08/28/16 08/29/16 15:00 23:00 07:00 Intake Total 840 ml 610 ml Output Total 1400 ml 850 ml 1600 ml Balance -1400 ml -10 ml -990 ml Exam GENERAL: Well-developed, well-nourished male who currently is awake, alert. HEENT: Head is atraumatic, normocephalic. PERRLA. NECK: Supple. The patient has a tracheostomy at the base of the neck CHEST: Lung sounds are slightly diminished at the bases. Scattered rhonchi bilaterally. CARDIOVASCULAR: Normal S1, S2. No murmurs, gallops, clicks, rubs noted. ABDOMEN: Round, soft, nondistended, and nontender. The patient has a G-tube with intact stoma. EXTREMITIES: No edema, clubbing, cyanosis. Pulses equal bilaterally 2+. SKIN: There is no rash noted. NEUROLOGIC: The patient is awake, alert to name and situation. Results Result Diagram: 08/29/16 0520 08/29/16 0520 Results 24 hrs Laboratory Tests Test 08/29/16 03:09 08/29/16 05:20 08/29/16 08:05 08/29/16 11:52 Bedside Glucose 224 H 203 278 H Anion Gap 14 Basophils # 0.0 Basophils % 0.5 Blood Morphology Comment Blood Urea Nitrogen 25 H Calcium Level 8.5 Carbon Dioxide Level 29 Chloride Level 103 Creatinine 0.71 Eosinophils # 0.3 Eosinophils % 4.0 Glucose Level 184 Hematocrit 25.4 L Hemoglobin 8.7 L Lymphocytes # 1.1 Lymphocytes % 17.0 Mean Corpuscular Hemoglobin 32.2 Mean Corpuscular Hemoglobin Concent 34.3 Mean Corpuscular Volume 94.0 Mean Platelet Volume 6.8 L Monocytes # 0.7 Monocytes % 10.2 Neutrophils # 4.5 Neutrophils % 68.3 Nucleated Red Blood Cells # 0.0 Nucleated Red Blood Cells % 0.0 Platelet Count 252 Potassium Level 4.0 Red Blood Count 2.70 L Red Cell Distribution Width 14.1 Sodium Level 142 White Blood Count 6.6 Test 08/29/16 17:04 08/29/16 21:50 Bedside Glucose 241 H 239 H Medications Medications Current Medications Amlodipine Besylate (Norvasc) 5 mg DAILY GTB Last administered on 08/29/16 09: 41; Admin Dose 5 MG; Start 08/27/16 at 09:00 Ascorbic Acid (Vitamin C) 500 mg DAILY GTB Last administered on 08/29/16 09:41 ; Admin Dose 500 MG; Start 08/27/16 at 09:00 Fluconazole (Diflucan) 100 mg DAILY GTB Last administered on 08/29/16 09:41; Admin Dose 100 MG; Start 08/27/16 at 09:00 Levetiracetam (Keppra Liquid) 2,000 mg BID GTB Last administered on 08/29/16 21:27; Admin Dose 2,000 MG; Start 08/26/16 at 21:00 Metoprolol Tartrate (Lopressor) 100 mg BID GTB Last administered on 08/29/16 21:28; Admin Dose 100 MG; Start 08/26/16 at 21:00 Mupirocin (Bactroban) APPLY TO NARES DAILY TOP Last administered on 08/29/16 09:43; Admin Dose 1 APPLIC; Start 08/26/16 at 23:59 Phenytoin (Dilantin Susp Cup) 250 mg Q12 GTB Last administered on 08/29/16 21: 26; Admin Dose 250 MG; Start 08/26/16 at 21:00 Spironolactone (Aldactone) 12.5 mg DAILY GTB Last administered on 08/29/16 09: 41; Admin Dose 12.5 MG; Start 08/27/16 at 09:00 Gabapentin (Neurontin Liquid) 300 mg QHS GTB Last administered on 08/29/16 22: 02; Admin Dose 300 MG; Start 08/26/16 at 21:00 Gabapentin (Neurontin Liquid) 600 mg DAILY GTB Last administered on 08/29/16 09:42; Admin Dose 600 MG; Start 08/27/16 at 09:00 Acetaminophen (Tylenol Liquid) 650 mg Q6 PRN GTB PAIN OR TEMP ABOVE 38C Last administered on 08/28/16 23:06; Admin Dose 650 MG; Start 08/27/16 at 11:30 Bisacodyl (Dulcolax Supp) 10 mg DAILY PRN [place] CONSTIPATION; Start 08/27/16 at 11 :30 Chlorhexidine Gluconate (Peridex) 10 ml BID MM Last administered on 08/29/16 21:27; Admin Dose 10 ML; Start 08/27/16 at 21:00 Doxazosin Mesylate (Cardura) 2 mg QHS PO Last administered on 08/29/16 21:27; Admin Dose 2 MG; Start 08/27/16 at 21:00 Ferrous Sulfate (Ferrous Sulfate (Ec)) 325 mg BID PO Last administered on 21:27; Admin Dose 325 MG; Start 08/27/16 at 21:00 Hydralazine HCl (Apresoline) 50 mg Q8 GTB Last administered on 08/29/16 21:28 ; Admin Dose 50 MG; Start 08/27/16 at 14:00 Acetaminophen/ Hydrocodone Bitart ([place] (5/325)) 1 tab Q6 PRN GTB PAIN; Start 08/27/16 at 11:30 Latanoprost (Xalatan) 1 drop QHS LEFT EYE Last administered on 08/29/16 21:56 ; Admin Dose 1 DROP; Start 08/27/16 at 21:00 Losartan Potassium (Cozaar) 50 mg DAILY GTB Last administered on 08/29/16 09: 42; Admin Dose 50 MG; Start 08/28/16 at 09:00 Magnesium Hydroxide (Milk Of Mag) 30 ml DAILY PRN GTB CONSTIPATION; Start 08/27 at 11:30 Multivitamins Therapeutic (Theragran) 1 tab DAILY GTB Last administered on 08/29 09:41; Admin Dose 1 TAB; Start 08/28/16 at 09:00 Ondansetron HCl (Zofran (Ped)) 4 mg Q8 PRN GTB NAUSEA; Start 08/27/16 at 11:30 Senna (Senokot) 1 tab DAILY PRN GTB CONSTIPATION; Start 08/27/16 at 11:30 Zolpidem Tartrate (Ambien) 5 mg QHS PRN GTB INSOMNIA Last administered on 22:55; Admin Dose 5 MG; Start 08/27/16 at 11:30 Diagnostic Test (Pha) (Accucheck) 1 ea 02 XX Last administered on 08/29/16 03: 00; Admin Dose 1 EA; Start 08/28/16 at 02:00 Insulin Glargine (Lantus) 10 unit QHS SC Last administered on 08/29/16 21:54; Admin Dose 10 UNIT; Start 08/27/16 at 21:00 Miscellaneous Information 1 ea NOTE XX ; Start 08/27/16 at 11:30 Glucose (Glutose) 15 gm Q15M PRN PO DECREASED GLUCOSE; Start 08/27/16 at 11:30 Glucose (Glutose) 22.5 gm Q15M PRN PO DECREASED GLUCOSE; Start 08/27/16 at 11: 30 Dextrose (D50w Syringe) 25 ml Q15M PRN IV DECREASED GLUCOSE; Start 08/27/16 at 11:30 Dextrose (D50w Syringe) 50 ml Q15M PRN IV DECREASED GLUCOSE; Start 08/27/16 at 11:30 Glucagon (Glucagen) 1 mg Q15M PRN IM DECREASED GLUCOSE; Start 08/27/16 at 11:30 Glucose 15 gm 15 gm Q15M PRN BUCCAL DECREASED GLUCOSE; Start 08/27/16 at 11:30 Potassium Chloride/Sodium Chloride (1/2 NS + KCl 20 Meq) 1,000 ml @ 70 mls/hr [id number] IV Last administered on 08/29/16 04:14; Admin Dose 70 MLS/HR; Start at 12:00 Lorazepam 0.5 mg 0.5 mg Q12 PRN IV ANXIETY; Start 08/28/16 at 18:00 Cefepime HCl (Maxipime 2gm/50 ml (Pmx)) 50 ml @ 100 mls/hr Q12 IVPB Last administered on 08/29/16 22:04; Admin Dose 100 MLS/HR; Start 08/29/16 at 15:30 Furosemide (Lasix) 40 mg DAILY IV Last administered on 08/29/16 14:38; Admin Dose 40 MG; Start 08/29/16 at 14:30 VIRGEN MARCUS Aug 29, 2016 22:36
[2016-08-29] MEDS: ZOLPIDEM 5 MG TAB GTB PRN (22:52)
[2016-08-30] VITALS (12 sets, daily range): BP systolic 119–141; BP diastolic 55–64; PULSE 73–84; RESP 16–20
[2016-08-30] MEDS: ALBUTEROL/IPRATROPIUM (NEB) 3 ML AMP HHN SCH ×4 (01:14→20:29)
[2016-08-30] MEDS: ACCUCHECK XX SCH (01:45)
[2016-08-30 08:23] LABS: BASOPHILS % 0.1 % (0.0-2.0); EOSINOPHILS # 0.3 10^3/ul (0.0-0.5); EOSINOPHILS % 3.9 % (0.0-7.0); HEMATOCRIT 26.2 % (42.0-52.0); LYMPHOCYTES % 13.1 % (15.0-51.0); MEAN CORPUSCULAR HEMOGLOBIN 32.9 pg (29.0-33.0); MEAN CORPUSCULAR HGB CONC 34.5 g/dl (32.0-37.0); MEAN CORPUSCULAR VOLUME 95.3 fl (82.0-101.0); MEAN PLATELET VOLUME 7.6 fl (7.4-10.4); MONOCYTE # 0.6 10^3/ul (0.3-0.9); MONOCYTES % 8.5 % (0.0-11.0); NEUTROPHIL # 5.5 10^3/ul (1.6-7.5); NEUTROPHILS % 74.4 % (39.0-77.0); PLATELET COUNT 209 10^3/UL (140-440); RED BLOOD COUNT 2.75 10^6/ul (4.70-6.10); RED CELL DISTRIBUTION WIDTH 14.3 % (11.5-14.5); UNCORRECTED WBC 7.4 10^3/ul (4.8-10.8); WHITE BLOOD COUNT 7.4 10^3/ul (4.8-10.8)
[2016-08-30 08:27] LABS: CONDITION 1
[2016-08-30 08:48] LABS: POTASSIUM 3.6 mmol/L (3.5-5.1)
[2016-08-30 08:50] LABS: CREATININE 0.78 mg/dl (0.61-1.24)
[2016-08-30 08:51] LABS: CALCIUM 8.6 mg/dl (8.4-10.2)
[2016-08-30] MEDS: MUPIROCIN 2% 22 GM OINT TOP SCH (09:00)
[2016-08-30] MEDS: PHENYTOIN (100 MG/4 ML) CUP GTB SCH ×2 (09:29→21:32)
[2016-08-30] MEDS: LEVETIRACETAM (100 MG/ML) 5ML CUP GTB SCH ×2 (09:31→21:31)
[2016-08-30] MEDS: CHLORHEXIDINE GLUCONATE 15 ML UD CUP MM SCH ×2 (09:32→21:31)
[2016-08-30] MEDS: FERROUS SULFATE (EC) 325 MG TAB PO SCH ×2 (09:33→21:32)
[2016-08-30] MEDS: SPIRONOLACTONE 25 MG TAB GTB SCH ×2 (09:35→18:37)
[2016-08-30] MEDS: MULTIVITAMINS THERAPEUTIC TAB GTB SCH (09:35)
[2016-08-30] MEDS: ASCORBIC ACID 500 MG TAB GTB SCH (09:35)
[2016-08-30] MEDS: LOSARTAN 50 MG TAB GTB SCH (09:36)
[2016-08-30] MEDS: FLUCONAZOLE 100 MG TAB GTB SCH (09:36)
[2016-08-30] MEDS: AMLODIPINE 5 MG TAB GTB SCH (09:37)
[2016-08-30] MEDS: METOPROLOL 100 MG TAB GTB SCH ×2 (09:37→21:33)
[2016-08-30] MEDS: GABAPENTIN (50 MG/ML PO SYG) GTB SCH ×2 (09:43→21:32)
[2016-08-30] MEDS: INSULIN ASPART [NOVOLOG] 3 ML PEN SC SCH (10:02)
[2016-08-30] MEDS: FUROSEMIDE 40 MG INJ IV SCH (10:33)
[2016-08-30] MEDS: CEFEPIME 2GM/50 ML (PMX) 50 ML IVPB SCH ×2 (10:33→21:33)
--- NOTE | 2016-08-30 11:34 | RADRPT ---
PROCEDURE: XR Chest. CLINICAL INDICATION: History of cough, evaluate aspiration TECHNIQUE: AP view of the chest was obtained. COMPARISON: 08/27/2016 FINDINGS: There are atherosclerotic calcifications of the thoracic aorta. The cardiomediastinal silhouette i s within normal limits. Tracheostomy tube remains in place. Pulmonary vascular congestion appears decreased. There is increasing retrocardiac left lower lobe atelectasis or consolidation with air b ronchograms, and increasing elevation of the left hemidiaphragm. There has been decrease in previous mild left basilar atelectasis. IMPRESSION: Increasing left lower lobe atelectasis/consolidation with increasing elevation of the left hemidiaph ragm. Decrease in left basilar atelectasis. Decrease in vascular congestion. RPTAT: VV .Carrillo Chavez MD, Date Time Electronically viewed and signed by .Carrillo Chavez MD, on 08/30/2016 11:33 .O/
[2016-08-30 12:54] LABS: LACTATE DEHYDROGENASE 515 IU/L (313-618)
[2016-08-30 12:56] LABS: IRON 43 ug/dl (35-150)
[2016-08-30 13:03] LABS: TOTAL IRON BINDING CAPACITY 193 ug/dl (241-421)
--- NOTE | 2016-08-30 13:13 | CONS ---
Date/Time of Note Date/Time of Note DATE: 08/30/16 TIME: 13:05 Assessment/Plan Assessment/Plan Additional Assessment/Plan Respiratory failure Acute blood loss anemia Acute decompensated diastolic congestive heart failure Preserved ejection fraction Hypertension Diabetes Obesity -Patient status post blood transfusion. Undergoing GI workup. Chest x-ray with improvement in congestion, still with significant secretions. Would give extra dose of IV diuretics this afternoon, increase Aldactone to twice a day as blood pressure and renal function permits. Blood pressure trend currently remains stable, maintain potassium above 4.0 and magnesium above 2.0. Consultation Date/Type/Reason Admit Date/Time Aug 28, 2016 at 10:58 Type of Consultation: cv Reason for Consultation Respiratory failure Hx of Present Illness This is a 71-year-old male well-known to me from a recent admission at [facility] with past medical history of diastolic congestive heart failure, respiratory failure with tracheostomy, diabetes, hypertension who was brought to the emergency room secondary to fatigue, anemia and increased secretions via the tracheostomy. Patient underwent 2 units of blood transfusion. He does complain of secretions via the tracheostomy which are yellowish. Discussion with the speech therapist, there are moderate in quantity. He denies any shortness of breath, chest pain, dizziness or palpitations. He is undergoing evaluation for possible endoscopy and colonoscopy. 12 point review of systems was performed with all pertinent positives and negatives mentioned above and all else is negative Constitutional: requiring IVF, requiring O2 Psychological: nl mood/affect Past Medical History Respiratory failure Medical History: congestive heart failure, diabetes, high cholesterol, hypertension Past Surgical History Tracheostomy PEG tube Past Surgical Hx: other Family History Significant Family History: no pertinent family hx Social History Smoking Status: Former smoker Other Social History From correction facility Exam/Review of Systems Vital Signs Vitals Vital Signs Date Time Temp Pulse Resp B/P Pulse Ox O2 Delivery O2 Flow Rate FiO2 08/30/16 12:19 84 08/30/16 11:09 98.8 20 141/64 97 08/30/16 08:02 5.0 28 08/30/16 08:02 Aerosol T Tube Intake and Output 08/29/16 08/29/16 08/30/16 15:00 23:00 07:00 Intake Total 1700 ml Output Total 750 ml 400 ml Balance 950 ml -400 ml Exam No apparent distress Constitutional: alert, obese, oriented Head: normocephalic Neck: other (tracheostomy) Respiratory: other (course breath sounds bilaterally with minimal scattered crackles more so at the bases with mild and expiratory wheezing) Cardiovascular: other (S1-S2 heard), regular rate and rhythm Gastrointestinal: bowel sounds, non-tender, other (no guarding), soft Extremities: edema Results Result Diagram: 08/30/16 0710 08/30/16 0710 Results 24 hrs Laboratory Tests Test 08/29/16 17:04 08/29/16 21:50 08/30/16 01:46 08/30/16 07:10 Bedside Glucose 241 H 239 H 232 H Anion Gap 16 Basophils # 0.0 Basophils % 0.1 Blood Urea Nitrogen 30 H Calcium Level 8.6 Carbon Dioxide Level 27 Chloride Level 102 Creatinine 0.78 Eosinophils # 0.3 Eosinophils % 3.9 Ferritin Pending Folate Pending Glucose Level 181 Hematocrit 26.2 L Hemoglobin 9.0 L Iron Level 43 Lactate Dehydrogenase 515 Lymphocytes # 1.0 Lymphocytes % 13.1 L Mean Corpuscular Hemoglobin 32.9 Mean Corpuscular Hemoglobin Concent 34.5 Mean Corpuscular Volume 95.3 Mean Platelet Volume 7.6 Monocytes # 0.6 Monocytes % 8.5 Neutrophils # 5.5 Neutrophils % 74.4 Nucleated Red Blood Cells # 0.0 Nucleated Red Blood Cells % 0.0 Percent Iron Saturation Pending Platelet Count 209 Potassium Level 3.6 Red Blood Count 2.75 L Red Cell Distribution Width 14.3 Sodium Level 141 Total Iron Binding Capacity Pending Vitamin B12 Level Pending White Blood Count 7.4 Test 08/30/16 08:32 Bedside Glucose 205 Medications Medications Current Medications Amlodipine Besylate (Norvasc) 5 mg DAILY GTB Last administered on 08/30/16 09: 37; Admin Dose 5 MG; Start 08/27/16 at 09:00 Ascorbic Acid (Vitamin C) 500 mg DAILY GTB Last administered on 08/30/16 09:35 ; Admin Dose 500 MG; Start 08/27/16 at 09:00 Fluconazole (Diflucan) 100 mg DAILY GTB Last administered on 08/30/16 09:36; Admin Dose 100 MG; Start 08/27/16 at 09:00 Levetiracetam (Keppra Liquid) 2,000 mg BID GTB Last administered on 08/30/16 09:31; Admin Dose 2,000 MG; Start 08/26/16 at 21:00 Metoprolol Tartrate (Lopressor) 100 mg BID GTB Last administered on 08/30/16 09:37; Admin Dose 100 MG; Start 08/26/16 at 21:00 Mupirocin (Bactroban) APPLY TO NARES DAILY TOP Last administered on 08/29/16 09:43; Admin Dose 1 APPLIC; Start 08/26/16 at 23:59 Phenytoin (Dilantin Susp Cup) 250 mg Q12 GTB Last administered on 08/30/16 09: 29; Admin Dose 250 MG; Start 08/26/16 at 21:00 Spironolactone (Aldactone) 12.5 mg DAILY GTB Last administered on 08/30/16 09: 35; Admin Dose 12.5 MG; Start 08/27/16 at 09:00 Gabapentin (Neurontin Liquid) 300 mg QHS GTB Last administered on 08/29/16 22: 02; Admin Dose 300 MG; Start 08/26/16 at 21:00 Gabapentin (Neurontin Liquid) 600 mg DAILY GTB Last administered on 08/30/16 09:43; Admin Dose 600 MG; Start 08/27/16 at 09:00 Acetaminophen (Tylenol Liquid) 650 mg Q6 PRN GTB PAIN OR TEMP ABOVE 38C Last administered on 08/28/16 23:06; Admin Dose 650 MG; Start 08/27/16 at 11:30 Bisacodyl (Dulcolax Supp) 10 mg DAILY PRN [place] CONSTIPATION; Start 08/27/16 at 11 :30 Chlorhexidine Gluconate (Peridex) 10 ml BID MM Last administered on 08/30/16 09:32; Admin Dose 10 ML; Start 08/27/16 at 21:00 Doxazosin Mesylate (Cardura) 2 mg QHS PO Last administered on 08/29/16 21:27; Admin Dose 2 MG; Start 08/27/16 at 21:00 Ferrous Sulfate (Ferrous Sulfate (Ec)) 325 mg BID PO Last administered on 09:33; Admin Dose 325 MG; Start 08/27/16 at 21:00 Hydralazine HCl (Apresoline) 50 mg Q8 GTB Last administered on 08/30/16 06:00 ; Admin Dose 50 MG; Start 08/27/16 at 14:00 Acetaminophen/ Hydrocodone Bitart ([place] (5/325)) 1 tab Q6 PRN GTB PAIN; Start 08/27/16 at 11:30 Latanoprost (Xalatan) 1 drop QHS LEFT EYE Last administered on 08/29/16 21:56 ; Admin Dose 1 DROP; Start 08/27/16 at 21:00 Losartan Potassium (Cozaar) 50 mg DAILY GTB Last administered on 08/30/16 09: 36; Admin Dose 50 MG; Start 08/28/16 at 09:00 Magnesium Hydroxide (Milk Of Mag) 30 ml DAILY PRN GTB CONSTIPATION; Start 08/27 at 11:30 Multivitamins Therapeutic (Theragran) 1 tab DAILY GTB Last administered on 08/30 09:35; Admin Dose 1 TAB; Start 08/28/16 at 09:00 Ondansetron HCl (Zofran (Ped)) 4 mg Q8 PRN GTB NAUSEA; Start 08/27/16 at 11:30 Senna (Senokot) 1 tab DAILY PRN GTB CONSTIPATION; Start 08/27/16 at 11:30 Zolpidem Tartrate (Ambien) 5 mg QHS PRN GTB INSOMNIA Last administered on 22:52; Admin Dose 5 MG; Start 08/27/16 at 11:30 Diagnostic Test (Pha) (Accucheck) 1 ea 02 XX Last administered on 08/30/16 01: 45; Admin Dose 1 EA; Start 08/28/16 at 02:00 Miscellaneous Information 1 ea NOTE XX ; Start 08/27/16 at 11:30 Glucose (Glutose) 15 gm Q15M PRN PO DECREASED GLUCOSE; Start 08/27/16 at 11:30 Glucose (Glutose) 22.5 gm Q15M PRN PO DECREASED GLUCOSE; Start 08/27/16 at 11: 30 Dextrose (D50w Syringe) 25 ml Q15M PRN IV DECREASED GLUCOSE; Start 08/27/16 at 11:30 Dextrose (D50w Syringe) 50 ml Q15M PRN IV DECREASED GLUCOSE; Start 08/27/16 at 11:30 Glucagon (Glucagen) 1 mg Q15M PRN IM DECREASED GLUCOSE; Start 1/14/17 at 11:30 Glucose 15 gm 15 gm Q15M PRN BUCCAL DECREASED GLUCOSE; Start 08/27/16 at 11:30 Potassium Chloride/Sodium Chloride (1/2 NS + KCl 20 Meq) 1,000 ml @ 70 mls/hr [id number] IV Last administered on 08/29/16 04:14; Admin Dose 70 MLS/HR; Start at 12:00 Lorazepam 0.5 mg 0.5 mg Q12 PRN IV ANXIETY; Start 08/28/16 at 18:00 Cefepime HCl (Maxipime 2gm/50 ml (Pmx)) 50 ml @ 100 mls/hr Q12 IVPB Last administered on 08/30/16 10:33; Admin Dose 100 MLS/HR; Start 08/29/16 at 15:30 Furosemide (Lasix) 40 mg DAILY IV Last administered on 08/30/16 10:33; Admin Dose 40 MG; Start 08/29/16 at 14:30 Insulin Glargine (Lantus) 20 unit QHS SC ; Start 08/30/16 at 21:00 Procedures Procedures ECG demonstrates sinus rhythm at 77 bpm, right bundle branch block, nonspecific STT wave abnormalities Jourdan Mercado DO Aug 30, 2016 13:13
--- NOTE | 2016-08-30 13:19 | PN ---
Date/Time of Note Date/Time of Note DATE: 08/30/16 TIME: 13:15 Assessment/Plan VTE Prophylaxis VTE Prophylaxis Intervention: SCD's Lines/Catheters IV C[facility]ter Type [facility]from [facility] Peripheral IV Central line still needed: Yes Urinary Cath still in place: Yes Reason Cath still needed: urinary retention Assessment/Plan Chief Complaint/Hosp Course ASSESSMENT AND PLAN: 1. Anemia, rule out gastrointestinal bleed. s/p transfusion of packed red blood cells, stool for OB is negative. Dr. Troy is following in gastroenterology consultation. Continue patient on Protonix. Pt refused endoscopy. Dr. Ashley is asked to see patient in hematology consultation. 2. History of respiratory failure with tracheostomy. Continue cool aerosol mist, continue trach care, and pulmonary toilet. Dr Mello is following in pulm. consult. 3. Congestive heart failure. Continue patient on Lasix. 4. Diabetes mellitus type 2. Continue Lantus and NovoLog. 5. History of cerebrovascular accident and seizure disorder. Continue Keppra and Dilantin. 6. Low grade fever yesterday, follow up on cultures and chest x-ray, continue Cefepime. 7. Chronic Rangel catheter, patient refused to change Rangel catheter. I had a long conversation with patient regarding plan of care, patient is worried that he is going to lose the bed at [facility], verified with case management, patient is reassured that he will have the bed, agreed to chest x- ray and swallow evaluation. Sequential compression devices for deep venous thrombosis prophylaxis. Further recommendations based on clinical course. Plan of care discussed with Dr. Fan Problems: Subjective 24 Hr Interval Summary Free Text/Dictation Patient with low-grade fever yesterday today no fever, pending urine and blood cultures, pending swallow evaluation. Exam/Review of Systems Vital Signs Vitals Vital Signs Date Time Temp Pulse Resp B/P Pulse Ox O2 Delivery O2 Flow Rate FiO2 08/30/16 12:19 84 08/30/16 11:09 98.8 20 141/64 97 08/30/16 08:02 5.0 28 08/30/16 08:02 Aerosol T Tube Intake and Output 08/29/16 08/29/16 08/30/16 15:00 23:00 07:00 Intake Total 1700 ml Output Total 750 ml 400 ml Balance 950 ml -400 ml Exam GENERAL: Well-developed, well-nourished male who currently is awake, alert. HEENT: Head is atraumatic, normocephalic. PERRLA. NECK: Supple. The patient has a tracheostomy at the base of the neck CHEST: Lung sounds are slightly diminished at the bases. Scattered rhonchi bilaterally. CARDIOVASCULAR: Normal S1, S2. No murmurs, gallops, clicks, rubs noted. ABDOMEN: Round, soft, nondistended, and nontender. The patient has a G-tube with intact stoma. EXTREMITIES: No edema, clubbing, cyanosis. Pulses equal bilaterally 2+. SKIN: There is no rash noted. NEUROLOGIC: The patient is awake, alert to name and situation. Results Result Diagram: 08/30/16 0710 08/30/16 0710 Results 24 hrs Laboratory Tests Test 08/29/16 17:04 08/29/16 21:50 08/30/16 01:46 08/30/16 07:10 Bedside Glucose 241 H 239 H 232 H Anion Gap 16 Basophils # 0.0 Basophils % 0.1 Blood Urea Nitrogen 30 H Calcium Level 8.6 Carbon Dioxide Level 27 Chloride Level 102 Creatinine 0.78 Eosinophils # 0.3 Eosinophils % 3.9 Ferritin Pending Folate Pending Glucose Level 181 Hematocrit 26.2 L Hemoglobin 9.0 L Iron Level 43 Lactate Dehydrogenase 515 Lymphocytes # 1.0 Lymphocytes % 13.1 L Mean Corpuscular Hemoglobin 32.9 Mean Corpuscular Hemoglobin Concent 34.5 Mean Corpuscular Volume 95.3 Mean Platelet Volume 7.6 Monocytes # 0.6 Monocytes % 8.5 Neutrophils # 5.5 Neutrophils % 74.4 Nucleated Red Blood Cells # 0.0 Nucleated Red Blood Cells % 0.0 Percent Iron Saturation Pending Platelet Count 209 Potassium Level 3.6 Red Blood Count 2.75 L Red Cell Distribution Width 14.3 Sodium Level 141 Total Iron Binding Capacity Pending Vitamin B12 Level Pending White Blood Count 7.4 Test 08/30/16 08:32 08/30/16 13:02 Bedside Glucose 205 360 H Medications Medications Current Medications Amlodipine Besylate (Norvasc) 5 mg DAILY GTB Last administered on 08/30/16t 09: 37; Admin Dose 5 MG; Start 08/27/16 at 09:00 Ascorbic Acid (Vitamin C) 500 mg DAILY GTB Last administered on 08/30/16 09:35 ; Admin Dose 500 MG; Start 08/27/16 at 09:00 Fluconazole (Diflucan) 100 mg DAILY GTB Last administered on 08/30/16 09:36; Admin Dose 100 MG; Start 08/27/16 at 09:00 Levetiracetam (Keppra Liquid) 2,000 mg BID GTB Last administered on 08/30/16 09:31; Admin Dose 2,000 MG; Start 08/26/16 at 21:00 Metoprolol Tartrate (Lopressor) 100 mg BID GTB Last administered on 08/30/16 09:37; Admin Dose 100 MG; Start 08/26/16 at 21:00 Mupirocin (Bactroban) APPLY TO NARES DAILY TOP Last administered on 08/29/16 09:43; Admin Dose 1 APPLIC; Start 08/26/16 at 23:59 Phenytoin (Dilantin Susp Cup) 250 mg Q12 GTB Last administered on 08/30/16 09: 29; Admin Dose 250 MG; Start 08/26/16 at 21:00 Spironolactone (Aldactone) 12.5 mg DAILY GTB Last administered on 08/30/16 09: 35; Admin Dose 12.5 MG; Start 08/27/16 at 09:00 Gabapentin (Neurontin Liquid) 300 mg QHS GTB Last administered on 08/29/16 22: 02; Admin Dose 300 MG; Start 08/26/16 at 21:00 Gabapentin (Neurontin Liquid) 600 mg DAILY GTB Last administered on 08/30/16 09:43; Admin Dose 600 MG; Start 08/27/16 at 09:00 Acetaminophen (Tylenol Liquid) 650 mg Q6 PRN GTB PAIN OR TEMP ABOVE 38C Last administered on 08/28/16 23:06; Admin Dose 650 MG; Start 08/27/16 at 11:30 Bisacodyl (Dulcolax Supp) 10 mg DAILY PRN [place] CONSTIPATION; Start 08/27/16 at 11 :30 Chlorhexidine Gluconate (Peridex) 10 ml BID MM Last administered on 08/30/16 09:32; Admin Dose 10 ML; Start 08/27/16 at 21:00 Doxazosin Mesylate (Cardura) 2 mg QHS PO Last administered on 08/29/16 21:27; Admin Dose 2 MG; Start 08/27/16 at 21:00 Ferrous Sulfate (Ferrous Sulfate (Ec)) 325 mg BID PO Last administered on 09:33; Admin Dose 325 MG; Start 08/27/16 at 21:00 Hydralazine HCl (Apresoline) 50 mg Q8 GTB Last administered on 08/30/16 06:00 ; Admin Dose 50 MG; Start 08/27/16 at 14:00 Acetaminophen/ Hydrocodone Bitart ([place] (5/325)) 1 tab Q6 PRN GTB PAIN; Start 08/27/16 at 11:30 Latanoprost (Xalatan) 1 drop QHS LEFT EYE Last administered on 08/29/16 21:56 ; Admin Dose 1 DROP; Start 08/27/16 at 21:00 Losartan Potassium (Cozaar) 50 mg DAILY GTB Last administered on 08/30/16 09: 36; Admin Dose 50 MG; Start 08/28/16 at 09:00 Magnesium Hydroxide (Milk Of Mag) 30 ml DAILY PRN GTB CONSTIPATION; Start 08/27 at 11:30 Multivitamins Therapeutic (Theragran) 1 tab DAILY GTB Last administered on 08/30 09:35; Admin Dose 1 TAB; Start 08/28/16 at 09:00 Ondansetron HCl (Zofran (Ped)) 4 mg Q8 PRN GTB NAUSEA; Start 08/27/16 at 11:30 Senna (Senokot) 1 tab DAILY PRN GTB CONSTIPATION; Start 08/27/16 at 11:30 Zolpidem Tartrate (Ambien) 5 mg QHS PRN GTB INSOMNIA Last administered on 22:52; Admin Dose 5 MG; Start 08/27/16 at 11:30 Diagnostic Test (Pha) (Accucheck) 1 ea 02 XX Last administered on 08/30/16 01: 45; Admin Dose 1 EA; Start 08/28/16 at 02:00 Miscellaneous Information 1 ea NOTE XX ; Start 08/27/16 at 11:30 Glucose (Glutose) 15 gm Q15M PRN PO DECREASED GLUCOSE; Start 08/27/16 at 11:30 Glucose (Glutose) 22.5 gm Q15M PRN PO DECREASED GLUCOSE; Start 08/27/16 at 11: 30 Dextrose (D50w Syringe) 25 ml Q15M PRN IV DECREASED GLUCOSE; Start 08/27/16 at 11:30 Dextrose (D50w Syringe) 50 ml Q15M PRN IV DECREASED GLUCOSE; Start 08/27/16 at 11:30 Glucagon (Glucagen) 1 mg Q15M PRN IM DECREASED GLUCOSE; Start 08/27/16 at 11:30 Glucose 15 gm 15 gm Q15M PRN BUCCAL DECREASED GLUCOSE; Start 08/27/16 at 11:30 Potassium Chloride/Sodium Chloride (08/15 NS + KCl 20 Meq) 1,000 ml @ 70 mls/hr [id number] IV Last administered on 08/29/16 04:14; Admin Dose 70 MLS/HR; Start at 12:00 Lorazepam 0.5 mg 0.5 mg Q12 PRN IV ANXIETY; Start 08/28/16 at 18:00 Cefepime HCl (Maxipime 2gm/50 ml (Pmx)) 50 ml @ 100 mls/hr Q12 IVPB Last administered on 08/30/16 10:33; Admin Dose 100 MLS/HR; Start 08/29/16 at 15:30 Furosemide (Lasix) 40 mg DAILY IV Last administered on 08/30/16 10:33; Admin Dose 40 MG; Start 08/29/16 at 14:30 Insulin Glargine (Lantus) 20 unit QHS SC ; Start 08/30/16 at 21:00 Insulin Aspart (Novolog Insulin Pen) NOVOLOG *MILD* ALGORITHM Q4 SC ; Start at 17:00; Status UNV Insulin Aspart (Novolog Insulin Pen) 4 unit ONCE ONCE SC ; Start 08/30/16 at 13 :30; Stop 08/30/16 at 13:31; Status UNV Potassium Chloride (Potassium Chloride Pwd/Soln) 40 meq ONCE ONCE GTB ; Start 08/30/16 at 13:30; Stop 08/30/16 at 13:31; Status UNV Furosemide (Lasix) 40 mg ONCE ONCE IV ; Start 08/30/16 at 16:00; Stop 08/30/16 at 16:01 VIRGEN MARCUS Aug 30, 2016 13:19
[2016-08-30 13:20] LABS: RETICULOCYTE COUNT % 1.2 % (0.5-1.5)
[2016-08-30] MEDS ORDERED: INSULIN ASPART [NOVOLOG] 3 ML PEN SC ONE (13:30)
[2016-08-30] MEDS ORDERED: POTASSIUM CHLORIDE 20 MEQ POWDER FOR ORAL SOLN GTB ONE (13:30)
[2016-08-30] MEDS: 1/2 NS + KCL 20 MEQ 1,000 ML IV SCH (13:43)
[2016-08-30 14:05] LABS: FOLATE > 20.0 ng/ml (2.8-20.0)
--- NOTE | 2016-08-30 14:21 | RADRPT ---
Vent Rate: 77 bpm RR Interval: 0 msec ID Interval: 144 msec QRS Duration: 134 msec QT Interval: 446 msec QTC Interval: 504 msec P-R-T [place]: 33 - -40 - 33 degrees Normal sinus rhythm Left axis deviation Right bundle branch block Abnormal ECG Electronically Signed By: Jourdan Mercado [id number]
--- NOTE | 2016-08-30 15:25 | PN ---
DATE: 08/30/2016 REASON FOR FOLLOWUP: Respiratory failure. SUBJECTIVE: Mr. Falcon is more stable today, decreased secretions, seen by speech therapy and tole rating Passy-Ogilvie valve. He remains awake, alert, and oriented this morning. PHYSICAL EXAMINATION: VITAL SIGNS: Temperature 98, pulse is 84, blood pressure 141/64, O2 saturation 96% on 5 liters nasa l cannula. NECK: Supple. No JVD or lymphadenopathy. Trach site clean and intact. CARDIAC: S1, S2, no added sounds or murmurs. CHEST: Diminished air entry both lung [place]. ABDOMEN: Soft, nontender. No guarding or rebound. EXTREMITIES: No cyanosis, clubbing or edema. NEUROLOGIC: Lower extremity weakness. LABORATORY DATA: White count 7.4, hemoglobin 9.0, platelets of 209, BUN 30, creatinine 0.78. IMPRESSION: 1. Vent dependent respiratory failure. 2. Chronic respiratory failure with tracheostomy. 3. History of anemia. 4. Pulmonary edema with decreased ejection fraction. The patient should continue with supplemental O2. PLAN: 1. Continue with bronchodilators. 2. Continue antibiotics. 3. Deep venous thrombosis and gastrointestinal prophylaxis. Dictated By: DONN CHILDS/MARIO Conf#: [id number] DID#: [id number]
--- NOTE | 2016-08-30 15:58 | CONS ---
Date/Time of Note Date/Time of Note DATE: 08/30/16 TIME: 15:42 Assessment/Plan Assessment/Plan Chief Complaint/Hosp Course 71 yo with COPD and chronic trach dependance admitted for anemia. Anemia panel does not reveal overt iron deficiency but low TIBC does support a component of chronic inflammation. A normal LDH makes hemolysis unlikely. Vitamin b12 and folate levels are ok. Pt is currently refusing EGD but stool ob was negative. -would continue Protonix in the case of underlying GI bleed as cause of anemia. -if anemia persists pt will need a bone marrow bx down the road -will check retic count for now which will give us some insight into bone marrow function -will check erythropoietin level in the case of underlying MDS, to see if patient would benefit from Epogen -given mild iron deficiency anemia, will given IV ferrilicit at this time Approximately 40 min were spent at patient's bedside and in coordination of his care Problems: Consultation Date/Type/Reason Admit Date/Time Aug 28, 2016 at 10:58 Date of Consultation: Aug 30, 2016 Type of Consultation: hematology Reason for Consultation anemia Referring Provider: ETHAN DELONG MD Hx of Present Illness 71-year-old gentleman patient with multiple medical problems who was admitted for respiratory distress with tracheostomy and dysphagia with PEG. On initial labs patient was found with a Hg 7.2 and presented with generalized weakness and fatigue. On admission patient was given 2 units of PRBCs. Pt is currently being treated for UTI and is on antibiotics. Pt has been seen by GI and is currently refusing endoscopy. Iron panel was ordered which revealed component of anemia secondary to chronic inflammation as labs reveal a low TIBC. Vitamin b12 and folate are also within normal limits. Constitutional: requiring IVF, requiring O2 Eyes: no complaints ENT: no complaints Respiratory: shortness of breath Cardiovascular: no complaints Gastrointestinal: decreased appetite Genitourinary: no complaints Musculoskeletal: no complaints Skin: no complaints Neurologic: no complaints Psychological: nl mood/affect Past Medical History COPD epilepsy congestive heart failure, hyperlipidemia, hypertension, diabetes mellitus. Medical History: congestive heart failure, diabetes, high cholesterol, hypertension Past Surgical History status post tracheostomy, status post gastrostomy. Past Surgical Hx: other Family History Significant Family History: no pertinent family hx Social History Alcohol Use: sober Smoking Status: Former smoker Exam/Review of Systems Vital Signs Vitals Vital Signs Date Time Temp Pulse Resp B/P Pulse Ox O2 Delivery O2 Flow Rate FiO2 08/30/16 15:31 98.8 81 20 119/58 97 08/30/16 14:51 5.0 28 08/30/16 14:51 Aerosol Mask Intake and Output 08/29/16 08/29/16 08/30/16 15:00 23:00 07:00 Intake Total 1700 ml Output Total 750 ml 400 ml Balance 950 ml -400 ml Exam Constitutional: alert, oriented Psych: no complaints Head: atraumatic, normocephalic Eyes: nl conjunctiva ENMT: nl external ears & nose Neck: supple Respiratory: diminished breath sounds Cardiovascular: nl pulses, regular rate and rhythm Gastrointestinal: soft Musculoskeletal: nl extremities to inspection, nl gait and stance Extremities: normal pulses Results Result Diagram: 08/30/16 0710 08/30/16 0710 Results 24 hrs Laboratory Tests Test 08/29/16 17:04 08/29/16 21:50 08/30/16 01:46 08/30/16 07:10 Bedside Glucose 241 H 239 H 232 H Absolute Reticulocyte Count 0.034 Anion Gap 16 Basophils # 0.0 Basophils % 0.1 Blood Urea Nitrogen 30 H Calcium Level 8.6 Carbon Dioxide Level 27 Chloride Level 102 Creatinine 0.78 Eosinophils # 0.3 Eosinophils % 3.9 Ferritin 463.0 H Folate > 20.0 H Glucose Level 181 Hematocrit 26.2 L Hemoglobin 9.0 L Iron Level 43 Lactate Dehydrogenase 515 Lymphocytes # 1.0 Lymphocytes % 13.1 L Mean Corpuscular Hemoglobin 32.9 Mean Corpuscular Hemoglobin Concent 34.5 Mean Corpuscular Volume 95.3 Mean Platelet Volume 7.6 Monocytes # 0.6 Monocytes % 8.5 Neutrophils # 5.5 Neutrophils % 74.4 Nucleated Red Blood Cells # 0.0 Nucleated Red Blood Cells % 0.0 Percent Iron Saturation 22 Percent Reticulocyte Count 1.2 Platelet Count 209 Potassium Level 3.6 Red Blood Count 2.75 L Red Cell Distribution Width 14.3 Sodium Level 141 Total Iron Binding Capacity 193 L Vitamin B12 Level 534 White Blood Count 7.4 Test 08/30/16 08:32 08/30/16 13:02 Bedside Glucose 205 360 H Medications Medications Current Medications Amlodipine Besylate (Norvasc) 5 mg DAILY GTB Last administered on 08/30/16t 09: 37; Admin Dose 5 MG; Start 1/14/17 at 09:00 Ascorbic Acid (Vitamin C) 500 mg DAILY GTB Last administered on 08/30/16 09:35 ; Admin Dose 500 MG; Start 08/27/16 at 09:00 Fluconazole (Diflucan) 100 mg DAILY GTB Last administered on 08/30/16 09:36; Admin Dose 100 MG; Start 08/27/16 at 09:00 Levetiracetam (Keppra Liquid) 2,000 mg BID GTB Last administered on 08/30/16 09:31; Admin Dose 2,000 MG; Start 08/26/16 at 21:00 Metoprolol Tartrate (Lopressor) 100 mg BID GTB Last administered on 08/30/16 09:37; Admin Dose 100 MG; Start 08/26/16 at 21:00 Mupirocin (Bactroban) APPLY TO NARES DAILY TOP Last administered on 08/29/16 09:43; Admin Dose 1 APPLIC; Start 08/26/16 at 23:59 Phenytoin (Dilantin Susp Cup) 250 mg Q12 GTB Last administered on 08/30/16 09: 29; Admin Dose 250 MG; Start 08/26/16 at 21:00 Gabapentin (Neurontin Liquid) 300 mg QHS GTB Last administered on 08/29/16 22: 02; Admin Dose 300 MG; Start 08/26/16 at 21:00 Gabapentin (Neurontin Liquid) 600 mg DAILY GTB Last administered on 08/30/16 09:43; Admin Dose 600 MG; Start 08/27/16 at 09:00 Acetaminophen (Tylenol Liquid) 650 mg Q6 PRN GTB PAIN OR TEMP ABOVE 38C Last administered on 08/28/16 23:06; Admin Dose 650 MG; Start 08/27/16 at 11:30 Bisacodyl (Dulcolax Supp) 10 mg DAILY PRN [place] CONSTIPATION; Start 08/27/16 at 11 :30 Chlorhexidine Gluconate (Peridex) 10 ml BID MM Last administered on 08/30/16 09:32; Admin Dose 10 ML; Start 08/27/16 at 21:00 Doxazosin Mesylate (Cardura) 2 mg QHS PO Last administered on 08/29/16 21:27; Admin Dose 2 MG; Start 08/27/16 at 21:00 Ferrous Sulfate (Ferrous Sulfate (Ec)) 325 mg BID PO Last administered on 09:33; Admin Dose 325 MG; Start 08/27/16 at 21:00 Hydralazine HCl (Apresoline) 50 mg Q8 GTB Last administered on 08/30/16 13:43 ; Admin Dose 50 MG; Start 08/27/16 at 14:00 Acetaminophen/ Hydrocodone Bitart ([place] (5/325)) 1 tab Q6 PRN GTB PAIN; Start 08/27/16 at 11:30 Latanoprost (Xalatan) 1 drop QHS LEFT EYE Last administered on 08/29/16 21:56 ; Admin Dose 1 DROP; Start 08/27/16 at 21:00 Losartan Potassium (Cozaar) 50 mg DAILY GTB Last administered on 08/30/16 09: 36; Admin Dose 50 MG; Start 08/28/16 at 09:00 Magnesium Hydroxide (Milk Of Mag) 30 ml DAILY PRN GTB CONSTIPATION; Start 08/27 at 11:30 Multivitamins Therapeutic (Theragran) 1 tab DAILY GTB Last administered on 08/30 09:35; Admin Dose 1 TAB; Start 08/28/16 at 09:00 Ondansetron HCl (Zofran (Ped)) 4 mg Q8 PRN GTB NAUSEA; Start 08/27/16 at 11:30 Senna (Senokot) 1 tab DAILY PRN GTB CONSTIPATION; Start 08/27/16 at 11:30 Zolpidem Tartrate (Ambien) 5 mg QHS PRN GTB INSOMNIA Last administered on 22:52; Admin Dose 5 MG; Start 08/27/16 at 11:30 Diagnostic Test (Pha) (Accucheck) 1 ea 02 XX Last administered on 08/30/16 01: 45; Admin Dose 1 EA; Start 08/28/16 at 02:00 Miscellaneous Information 1 ea NOTE XX ; Start 08/27/16 at 11:30 Glucose (Glutose) 15 gm Q15M PRN PO DECREASED GLUCOSE; Start 08/27/16 at 11:30 Glucose (Glutose) 22.5 gm Q15M PRN PO DECREASED GLUCOSE; Start 08/27/16 at 11: 30 Dextrose (D50w Syringe) 25 ml Q15M PRN IV DECREASED GLUCOSE; Start 08/27/16 at 11:30 Dextrose (D50w Syringe) 50 ml Q15M PRN IV DECREASED GLUCOSE; Start 08/27/16 at 11:30 Glucagon (Glucagen) 1 mg Q15M PRN IM DECREASED GLUCOSE; Start 08/27/16 at 11:30 Glucose 15 gm 15 gm Q15M PRN BUCCAL DECREASED GLUCOSE; Start 08/27/16 at 11:30 Potassium Chloride/Sodium Chloride (1/ NS + KCl 20 Meq) 1,000 ml @ 70 mls/hr [id number] IV Last administered on 08/30/16 13:43; Admin Dose 70 MLS/HR; Start at 12:00 Lorazepam 0.5 mg 0.5 mg Q12 PRN IV ANXIETY; Start 08/28/16 at 18:00 Cefepime HCl (Maxipime 2gm/50 ml (Pmx)) 50 ml @ 100 mls/hr Q12 IVPB Last administered on 08/30/16 10:33; Admin Dose 100 MLS/HR; Start 08/29/16 at 15:30 Furosemide (Lasix) 40 mg DAILY IV Last administered on 08/30/16 10:33; Admin Dose 40 MG; Start 08/29/16 at 14:30 Insulin Glargine (Lantus) 20 unit QHS SC ; Start 08/30/16 at 21:00 Furosemide (Lasix) 40 mg ONCE ONCE IV ; Start 08/30/16 at 16:00; Stop 08/30/16 at 16:01 Insulin Aspart (Novolog Insulin Pen) (Adult SC Insulin - Mild Algorithm)... Q4 SC ; Start 08/30/16 at 17:00 CYNDI VELASQUEZ M.D. Aug 30, 2016 15:56
[2016-08-30] MEDS ORDERED: FUROSEMIDE 20 MG INJ IV ONE (16:00)
[2016-08-30] MEDS: ACETAMINOPHEN 650MG/20.3ML CUP GTB PRN (16:47)
[2016-08-30] MEDS ORDERED: INSULIN ASPART [NOVOLOG] 3 ML PEN SC SCH (17:00)
[2016-08-30] MEDS: SOD FERRIC GLUC COMPLX 125 MG in SOD CHLORIDE 0.9% 100 ML IVPB SCH (18:38)
[2016-08-30] MEDS: Insulin NOVOLOG SS MILD Algorithm (NPO/TPN/ENTERAL FEEDS) SC SCH ×2 (18:40→20:46)
[2016-08-30] MEDS: INSULIN GLARGINE [LANtus] 3 ML PEN SC SCH (20:46)
[2016-08-30] MEDS: LATANOPROST 0.005% 2.5 ML OPH LEFT EYE SCH (21:30)
[2016-08-30] MEDS: DOXAZOSIN 2 MG TAB PO SCH (21:33)
[2016-08-30] MEDS: ZOLPIDEM 5 MG TAB GTB PRN (22:57)
[2016-08-31] VITALS (12 sets, daily range): BP systolic 98–130; BP diastolic 50–64; PULSE 70–81; RESP 18–20
[2016-08-31] MEDS: ALBUTEROL/IPRATROPIUM (NEB) 3 ML AMP HHN SCH ×4 (01:45→21:26)
[2016-08-31] MEDS: Insulin NOVOLOG SS MILD Algorithm (NPO/TPN/ENTERAL FEEDS) SC SCH ×6 (02:08→21:00)
[2016-08-31] MEDS: 1/2 NS + KCL 20 MEQ 1,000 ML IV SCH ×2 (02:09→16:06)
[2016-08-31] MEDS: ACCUCHECK XX SCH (02:09)
[2016-08-31] MEDS: SPIRONOLACTONE 25 MG TAB GTB SCH ×2 (05:22→18:07)
[2016-08-31 06:29] LABS: BASOPHILS % 0.7 % (0.0-2.0); EOSINOPHILS # 0.4 10^3/ul (0.0-0.5); EOSINOPHILS % 6.5 % (0.0-7.0); HEMATOCRIT 27.7 % (42.0-52.0); HEMOGLOBIN 9.7 g/dl (14.0-18.0); LYMPHOCYTES # 1.1 10^3/ul (0.8-2.9); LYMPHOCYTES % 17.2 % (15.0-51.0); MEAN CORPUSCULAR HEMOGLOBIN 33.2 pg (29.0-33.0); MEAN CORPUSCULAR HGB CONC 35.1 g/dl (32.0-37.0); MEAN CORPUSCULAR VOLUME 94.6 fl (82.0-101.0); MEAN PLATELET VOLUME 7.4 fl (7.4-10.4); MONOCYTE # 0.6 10^3/ul (0.3-0.9); MONOCYTES % 8.7 % (0.0-11.0); NEUTROPHIL # 4.4 10^3/ul (1.6-7.5); NEUTROPHILS % 66.9 % (39.0-77.0); PLATELET COUNT 242 10^3/UL (140-440); RED BLOOD COUNT 2.92 10^6/ul (4.70-6.10); RED CELL DISTRIBUTION WIDTH 14.4 % (11.5-14.5); UNCORRECTED WBC 6.6 10^3/ul (4.8-10.8); WHITE BLOOD COUNT 6.6 10^3/ul (4.8-10.8)
[2016-08-31 06:37] LABS: CONDITION 1
[2016-08-31 06:43] LABS: POTASSIUM 3.5 mmol/L (3.5-5.1)
[2016-08-31 06:45] LABS: CREATININE 0.93 mg/dl (0.61-1.24)
[2016-08-31 06:46] LABS: CALCIUM 8.7 mg/dl (8.4-10.2)
[2016-08-31] MEDS: MUPIROCIN 2% 22 GM OINT TOP SCH (09:00)
[2016-08-31] MEDS: LOSARTAN 50 MG TAB GTB SCH (09:29)
[2016-08-31] MEDS: PHENYTOIN (100 MG/4 ML) CUP GTB SCH ×2 (09:30→20:18)
[2016-08-31] MEDS: FLUCONAZOLE 100 MG TAB GTB SCH (09:30)
[2016-08-31] MEDS: LEVETIRACETAM (100 MG/ML) 5ML CUP GTB SCH ×2 (09:33→20:18)
[2016-08-31] MEDS: METOPROLOL 100 MG TAB GTB SCH ×2 (09:35→20:17)
[2016-08-31] MEDS: ASCORBIC ACID 500 MG TAB GTB SCH (09:36)
[2016-08-31] MEDS: MULTIVITAMINS THERAPEUTIC TAB GTB SCH (09:36)
[2016-08-31] MEDS: AMLODIPINE 5 MG TAB GTB SCH (09:36)
[2016-08-31] MEDS: FERROUS SULFATE (EC) 325 MG TAB PO SCH ×2 (09:38→20:19)
[2016-08-31] MEDS: FUROSEMIDE 40 MG INJ IV SCH (09:38)
[2016-08-31] MEDS: GABAPENTIN (50 MG/ML PO SYG) GTB SCH ×2 (09:40→20:25)
[2016-08-31] MEDS: CEFEPIME 2GM/50 ML (PMX) 50 ML IVPB SCH ×2 (09:41→23:04)
[2016-08-31] MEDS: CHLORHEXIDINE GLUCONATE 15 ML UD CUP MM SCH ×2 (09:59→20:18)
--- NOTE | 2016-08-31 12:30 | RADRPT ---
PROCEDURE: Video-fluoroscopy swallowing study. CLINICAL INDICATION: Dysphagia. TECHNIQUE: Fluoroscopic guided video swallowing study was done in conjunction with the speech ther apist. The study was confined to the oral, pharyngeal, and cervical phases of the swallowing mechani sm. 3.2 minutes of fluoroscopy time was used. COMPARISON: No prior study is available for comparison. FINDINGS: There is no evidence of aspiration during the exam. IMPRESSION: 1. Normal study. No aspiration. 2. Please refer to the speech therapist's recommendations for future feedings. RPTAT: QQ .Julius Gupta MD, MD Date Time Electronically viewed and signed by .Julius Gupta MD, on 08/31/2016 12:29 .R/
[2016-08-31] MEDS ORDERED: POTASSIUM CHLORIDE 20 MEQ POWDER FOR ORAL SOLN NGT ONE ×2 (14:00→21:00)
[2016-08-31] MEDS: MAGNESIUM SULFATE 3 GM in SOD CHLORIDE 0.9% 100 ML IVPB ONE ×2 (14:00→15:34)
--- NOTE | 2016-08-31 14:02 | CONS ---
Date/Time of Note Date/Time of Note DATE: 08/31/16 TIME: 14:00 Assessment/Plan Assessment/Plan Additional Assessment/Plan Respiratory failure Acute blood loss anemia Acute decompensated diastolic congestive heart failure Preserved ejection fraction Hypertension Diabetes Obesity -Patient with improvement in shortness of breath, would plan to switch diuretic to by mouth in the next one to 2 days. Potassium and magnesium supplementation has been ordered. Blood pressure trend overall remains stable. Consultation Date/Type/Reason Admit Date/Time Aug 28, 2016 at 10:58 Initial Consult Date 08/30/16 Type of Consultation: cv Referring Provider: ETHAN DELONG MD 24 HR Interval Summary Free Text/Dictation Patient with improvement in shortness of breath, secretions are slightly better Exam/Review of Systems Vital Signs Vitals Vital Signs Date Time Temp Pulse Resp B/P Pulse Ox O2 Delivery O2 Flow Rate FiO2 08/31/16 12:13 80 08/31/16 11:31 98.5 20 119/59 93 08/31/16 11:01 5.0 08/31/16 08:31 Aerosol 28 T Tube Intake and Output 08/30/16 08/30/16 08/31/16 15:00 23:00 07:00 Intake Total 410 ml Output Total 750 ml Balance 410 ml -750 ml Exam No apparent distress Constitutional: alert, obese, oriented Head: normocephalic Neck: other (tracheostomy) Respiratory: other (course breath sounds bilaterally, no wheezing) Cardiovascular: other (S1-S2 heard), regular rate and rhythm Gastrointestinal: bowel sounds, non-tender, soft Extremities: other (no edema) Results Result Diagram: 08/31/16 0559 08/31/16 0559 Results 24 hrs Laboratory Tests Test 08/30/16 18:36 08/30/16 20:39 08/31/16 02:07 08/31/16 05:21 Bedside Glucose 221 H 176 118 98 Test 08/31/16 05:59 08/31/16 10:22 08/31/16 12:44 Anion Gap 16 Basophils # 0.0 Basophils % 0.7 Blood Morphology Comment Blood Urea Nitrogen 30 H Calcium Level 8.7 Carbon Dioxide Level 27 Chloride Level 104 Creatinine 0.93 Eosinophils # 0.4 Eosinophils % 6.5 Glucose Level 85 # Hematocrit 27.7 L Hemoglobin 9.7 L Lymphocytes # 1.1 Lymphocytes % 17.2 Magnesium Level 1.8 Mean Corpuscular Hemoglobin 33.2 H Mean Corpuscular Hemoglobin Concent 35.1 Mean Corpuscular Volume 94.6 Mean Platelet Volume 7.4 Monocytes # 0.6 Monocytes % 8.7 Neutrophils # 4.4 Neutrophils % 66.9 Nucleated Red Blood Cells # 0.0 Nucleated Red Blood Cells % 0.0 Platelet Count 242 Potassium Level 3.5 Red Blood Count 2.92 L Red Cell Distribution Width 14.4 Sodium Level 143 White Blood Count 6.6 Bedside Glucose 136 184 Medications Medications Current Medications Amlodipine Besylate (Norvasc) 5 mg DAILY GTB Last administered on 08/31/16 09: 36; Admin Dose 5 MG; Start 08/27/16 at 09:00 Ascorbic Acid (Vitamin C) 500 mg DAILY GTB Last administered on 08/31/16 09:36 ; Admin Dose 500 MG; Start 08/27/16 at 09:00 Fluconazole (Diflucan) 100 mg DAILY GTB Last administered on 08/31/16 09:30; Admin Dose 100 MG; Start 08/27/16 at 09:00 Levetiracetam (Keppra Liquid) 2,000 mg BID GTB Last administered on 08/31/16 09:33; Admin Dose 2,000 MG; Start 08/26/16 at 21:00 Metoprolol Tartrate (Lopressor) 100 mg BID GTB Last administered on 08/31/16 09:35; Admin Dose 100 MG; Start 08/26/16 at 21:00 Mupirocin (Bactroban) APPLY TO NARES DAILY TOP Last administered on 08/29/16 09:43; Admin Dose 1 APPLIC; Start 08/26/16 at 23:59 Phenytoin (Dilantin Susp Cup) 250 mg Q12 GTB Last administered on 08/31/16 09: 30; Admin Dose 250 MG; Start 08/26/16 at 21:00 Gabapentin (Neurontin Liquid) 300 mg QHS GTB Last administered on 08/30/16 21: 32; Admin Dose 300 MG; Start 08/26/16 at 21:00 Gabapentin (Neurontin Liquid) 600 mg DAILY GTB Last administered on 08/31/16 09:40; Admin Dose 600 MG; Start 08/27/16 at 09:00 Acetaminophen (Tylenol Liquid) 650 mg Q6 PRN GTB PAIN OR TEMP ABOVE 38C Last administered on 08/30/16 16:47; Admin Dose 650 MG; Start 08/27/16 at 11:30 Bisacodyl (Dulcolax Supp) 10 mg DAILY PRN [place] CONSTIPATION; Start 08/27/16 at 11 :30 Chlorhexidine Gluconate (Peridex) 10 ml BID MM Last administered on 08/31/16 09:59; Admin Dose 10 ML; Start 08/27/16 at 21:00 Doxazosin Mesylate (Cardura) 2 mg QHS PO Last administered on 08/30/16 21:33; Admin Dose 2 MG; Start 08/27/16 at 21:00 Ferrous Sulfate (Ferrous Sulfate (Ec)) 325 mg BID PO Last administered on 09:38; Admin Dose 325 MG; Start 08/27/16 at 21:00 Hydralazine HCl (Apresoline) 50 mg Q8 GTB Last administered on 08/31/16 13:34 ; Admin Dose 50 MG; Start 08/27/16 at 14:00 Acetaminophen/ Hydrocodone Bitart ([place] (5/325)) 1 tab Q6 PRN GTB PAIN; Start 08/27/16 at 11:30 Latanoprost (Xalatan) 1 drop QHS LEFT EYE Last administered on 08/30/16 21:30 ; Admin Dose 1 DROP; Start 08/27/16 at 21:00 Losartan Potassium (Cozaar) 50 mg DAILY GTB Last administered on 08/31/16 09: 29; Admin Dose 50 MG; Start 08/28/16 at 09:00 Magnesium Hydroxide (Milk Of Mag) 30 ml DAILY PRN GTB CONSTIPATION; Start 08/27 at 11:30 Multivitamins Therapeutic (Theragran) 1 tab DAILY GTB Last administered on 08/31 09:36; Admin Dose 1 TAB; Start 08/28/16 at 09:00 Ondansetron HCl (Zofran (Ped)) 4 mg Q8 PRN GTB NAUSEA; Start 08/27/16 at 11:30 Senna (Senokot) 1 tab DAILY PRN GTB CONSTIPATION; Start 08/27/16 at 11:30 Zolpidem Tartrate (Ambien) 5 mg QHS PRN GTB INSOMNIA Last administered on 22:57; Admin Dose 5 MG; Start 08/27/16 at 11:30 Diagnostic Test (Pha) (Accucheck) 1 ea 02 XX Last administered on 08/31/16 02: 09; Admin Dose 1 EA; Start 08/28/16 at 02:00 Miscellaneous Information 1 ea NOTE XX ; Start 08/27/16 at 11:30 Glucose (Glutose) 15 gm Q15M PRN PO DECREASED GLUCOSE; Start 08/27/16 at 11:30 Glucose (Glutose) 22.5 gm Q15M PRN PO DECREASED GLUCOSE; Start 08/27/16 at 11: 30 Dextrose (D50w Syringe) 25 ml Q15M PRN IV DECREASED GLUCOSE; Start 08/27/16 at 11:30 Dextrose (D50w Syringe) 50 ml Q15M PRN IV DECREASED GLUCOSE; Start 08/27/16 at 11:30 Glucagon (Glucagen) 1 mg Q15M PRN IM DECREASED GLUCOSE; Start 08/27/16 at 11:30 Glucose 15 gm 15 gm Q15M PRN BUCCAL DECREASED GLUCOSE; Start 08/27/16 at 11:30 Potassium Chloride/Sodium Chloride (1/2 NS + KCl 20 Meq) 1,000 ml @ 70 mls/hr [id number] IV Last administered on 08/31/16 02:09; Admin Dose 70 MLS/HR; Start at 12:00 Lorazepam 0.5 mg 0.5 mg Q12 PRN IV ANXIETY; Start 08/28/16 at 18:00 Cefepime HCl (Maxipime 2gm/50 ml (Pmx)) 50 ml @ 100 mls/hr Q12 IVPB Last administered on 08/31/16 09:41; Admin Dose 100 MLS/HR; Start 08/29/16 at 15:30 Furosemide (Lasix) 40 mg DAILY IV Last administered on 08/31/16 09:38; Admin Dose 40 MG; Start 08/29/16 at 14:30 Insulin Glargine (Lantus) 20 unit QHS SC Last administered on 08/30/16 20:46; Admin Dose 20 UNIT; Start 08/30/16 at 21:00 Insulin Aspart (Adult SC Insulin - Mild Algorithm)... Q4 SC Last administered on 08/31/16 13:40; Admin Dose 4 UNIT; Start 08/30/16 at 17:00 Ferric Sodium Gluconate Complex/ Sodium Chloride (Ferrlecit/NS) 110 ml @ 110 mls/hr Q24H IVPB Last administered on 08/30/16 18:38; Admin Dose 110 MLS/HR; Start 08/30/16 at 17:30; Stop 09/03/16 at 18:29 Jourdan Mercado DO Aug 31, 2016 14:02
--- NOTE | 2016-08-31 14:05 | CONS ---
Date/Time of Note Date/Time of Note DATE: 08/31/16 TIME: 14:04 Assessment/Plan Assessment/Plan Chief Complaint/Hosp Course 71 yo with COPD and chronic trach dependance admitted for anemia. Anemia panel does not reveal overt iron deficiency but low TIBC does support a component of chronic inflammation. A normal LDH makes hemolysis unlikely. Vitamin b12 and folate levels are ok. Pt is currently refusing EGD but stool ob was negative. -would continue Protonix in the case of underlying GI bleed as cause of anemia. -if anemia persists pt will need a bone marrow bx down the road -will check retic count for now which will give us some insight into bone marrow function -will check erythropoietin level in the case of underlying MDS, to see if patient would benefit from Epogen -given mild iron deficiency anemia, continue IV ferrilicit at this time Approximately 40 min were spent at patient's bedside and in coordination of his care Problems: Consultation Date/Type/Reason Admit Date/Time Aug 28, 2016 at 10:58 Initial Consult Date 08/30/16 Type of Consultation: hematology Reason for Consultation anemia Referring Provider: ETHAN DELONG MD 24 HR Interval Summary Free Text/Dictation started IV iron Exam/Review of Systems Vital Signs Vitals Vital Signs Date Time Temp Pulse Resp B/P Pulse Ox O2 Delivery O2 Flow Rate FiO2 08/31/16 12:13 80 08/31/16 11:31 98.5 20 119/59 93 08/31/16 11:01 5.0 08/31/16 08:31 Aerosol 28 T Tube Intake and Output 08/30/16 08/30/16 08/31/16 15:00 23:00 07:00 Intake Total 410 ml Output Total 750 ml Balance 410 ml -750 ml Exam Constitutional: alert, oriented Psych: no complaints Head: atraumatic, normocephalic Eyes: nl conjunctiva ENMT: nl external ears & nose Neck: non-tender, other (trach in place), supple Respiratory: clear to auscultation, normal air movement Cardiovascular: nl pulses, regular rate and rhythm Gastrointestinal: soft Musculoskeletal: nl extremities to inspection, nl gait and stance Extremities: normal pulses Results Result Diagram: 08/31/16 0559 08/31/16 0559 Results 24 hrs Laboratory Tests Test 08/30/16 18:36 08/30/16 20:39 08/31/16 02:07 08/31/16 05:21 Bedside Glucose 221 H 176 118 98 Test 08/31/16 05:59 08/31/16 10:22 08/31/16 12:44 Anion Gap 16 Basophils # 0.0 Basophils % 0.7 Blood Morphology Comment Blood Urea Nitrogen 30 H Calcium Level 8.7 Carbon Dioxide Level 27 Chloride Level 104 Creatinine 0.93 Eosinophils # 0.4 Eosinophils % 6.5 Glucose Level 85 # Hematocrit 27.7 L Hemoglobin 9.7 L Lymphocytes # 1.1 Lymphocytes % 17.2 Magnesium Level 1.8 Mean Corpuscular Hemoglobin 33.2 H Mean Corpuscular Hemoglobin Concent 35.1 Mean Corpuscular Volume 94.6 Mean Platelet Volume 7.4 Monocytes # 0.6 Monocytes % 8.7 Neutrophils # 4.4 Neutrophils % 66.9 Nucleated Red Blood Cells # 0.0 Nucleated Red Blood Cells % 0.0 Platelet Count 242 Potassium Level 3.5 Red Blood Count 2.92 L Red Cell Distribution Width 14.4 Sodium Level 143 White Blood Count 6.6 Bedside Glucose 136 184 Medications Medications Current Medications Amlodipine Besylate (Norvasc) 5 mg DAILY GTB Last administered on 08/31/16 09: 36; Admin Dose 5 MG; Start 08/27/16 at 09:00 Ascorbic Acid (Vitamin C) 500 mg DAILY GTB Last administered on 08/31/16 09:36 ; Admin Dose 500 MG; Start 08/27/16 at 09:00 Fluconazole (Diflucan) 100 mg DAILY GTB Last administered on 08/31/16 09:30; Admin Dose 100 MG; Start 08/27/16 at 09:00 Levetiracetam (Keppra Liquid) 2,000 mg BID GTB Last administered on 08/31/16 09:33; Admin Dose 2,000 MG; Start 08/26/16 at 21:00 Metoprolol Tartrate (Lopressor) 100 mg BID GTB Last administered on 08/31/16 09:35; Admin Dose 100 MG; Start 08/26/16 at 21:00 Mupirocin (Bactroban) APPLY TO NARES DAILY TOP Last administered on 08/29/16 09:43; Admin Dose 1 APPLIC; Start 08/26/16 at 23:59 Phenytoin (Dilantin Susp Cup) 250 mg Q12 GTB Last administered on 08/31/16 09: 30; Admin Dose 250 MG; Start 08/26/16 at 21:00 Gabapentin (Neurontin Liquid) 300 mg QHS GTB Last administered on 08/30/16 21: 32; Admin Dose 300 MG; Start 08/26/16 at 21:00 Gabapentin (Neurontin Liquid) 600 mg DAILY GTB Last administered on 08/31/16 09:40; Admin Dose 600 MG; Start 08/27/16 at 09:00 Acetaminophen (Tylenol Liquid) 650 mg Q6 PRN GTB PAIN OR TEMP ABOVE 38C Last administered on 08/30/16 16:47; Admin Dose 650 MG; Start 08/27/16 at 11:30 Bisacodyl (Dulcolax Supp) 10 mg DAILY PRN [place] CONSTIPATION; Start 08/27/16 at 11 :30 Chlorhexidine Gluconate (Peridex) 10 ml BID MM Last administered on 08/31/16 09:59; Admin Dose 10 ML; Start 08/27/16 at 21:00 Doxazosin Mesylate (Cardura) 2 mg QHS PO Last administered on 08/30/16 21:33; Admin Dose 2 MG; Start 08/27/16 at 21:00 Ferrous Sulfate (Ferrous Sulfate (Ec)) 325 mg BID PO Last administered on 09:38; Admin Dose 325 MG; Start 08/27/16 at 21:00 Hydralazine HCl (Apresoline) 50 mg Q8 GTB Last administered on 08/31/16 13:34 ; Admin Dose 50 MG; Start 08/27/16 at 14:00 Acetaminophen/ Hydrocodone Bitart ([place] (5/325)) 1 tab Q6 PRN GTB PAIN; Start 08/27/16 at 11:30 Latanoprost (Xalatan) 1 drop QHS LEFT EYE Last administered on 08/30/16 21:30 ; Admin Dose 1 DROP; Start 08/27/16 at 21:00 Losartan Potassium (Cozaar) 50 mg DAILY GTB Last administered on 08/31/16 09: 29; Admin Dose 50 MG; Start 08/28/16 at 09:00 Magnesium Hydroxide (Milk Of Mag) 30 ml DAILY PRN GTB CONSTIPATION; Start 08/27 at 11:30 Multivitamins Therapeutic (Theragran) 1 tab DAILY GTB Last administered on 08/31 09:36; Admin Dose 1 TAB; Start 08/28/16 at 09:00 Ondansetron HCl (Zofran (Ped)) 4 mg Q8 PRN GTB NAUSEA; Start 08/27/16 at 11:30 Senna (Senokot) 1 tab DAILY PRN GTB CONSTIPATION; Start 08/27/16 at 11:30 Zolpidem Tartrate (Ambien) 5 mg QHS PRN GTB INSOMNIA Last administered on 22:57; Admin Dose 5 MG; Start 08/27/16 at 11:30 Diagnostic Test (Pha) (Accucheck) 1 ea 02 XX Last administered on 08/31/16 02: 09; Admin Dose 1 EA; Start 08/28/16 at 02:00 Miscellaneous Information 1 ea NOTE XX ; Start 08/27/16 at 11:30 Glucose (Glutose) 15 gm Q15M PRN PO DECREASED GLUCOSE; Start 08/27/16 at 11:30 Glucose (Glutose) 22.5 gm Q15M PRN PO DECREASED GLUCOSE; Start 08/27/16 at 11: 30 Dextrose (D50w Syringe) 25 ml Q15M PRN IV DECREASED GLUCOSE; Start 08/27/16 at 11:30 Dextrose (D50w Syringe) 50 ml Q15M PRN IV DECREASED GLUCOSE; Start 08/27/16 at 11:30 Glucagon (Glucagen) 1 mg Q15M PRN IM DECREASED GLUCOSE; Start 08/27/16 at 11:30 Glucose 15 gm 15 gm Q15M PRN BUCCAL DECREASED GLUCOSE; Start 08/27/16 at 11:30 Potassium Chloride/Sodium Chloride (1/2 NS + KCl 20 Meq) 1,000 ml @ 70 mls/hr [id number] IV Last administered on 08/31/16 02:09; Admin Dose 70 MLS/HR; Start at 12:00 Lorazepam 0.5 mg 0.5 mg Q12 PRN IV ANXIETY; Start 08/28/16 at 18:00 Cefepime HCl (Maxipime 2gm/50 ml (Pmx)) 50 ml @ 100 mls/hr Q12 IVPB Last administered on 08/31/16 09:41; Admin Dose 100 MLS/HR; Start 08/29/16 at 15:30 Furosemide (Lasix) 40 mg DAILY IV Last administered on 08/31/16 09:38; Admin Dose 40 MG; Start 08/29/16 at 14:30 Insulin Glargine (Lantus) 20 unit QHS SC Last administered on 08/30/16 20:46; Admin Dose 20 UNIT; Start 08/30/16 at 21:00 Insulin Aspart (Adult SC Insulin - Mild Algorithm)... Q4 SC Last administered on 08/31/16 13:40; Admin Dose 4 UNIT; Start 08/30/16 at 17:00 Ferric Sodium Gluconate Complex/ Sodium Chloride (Ferrlecit/NS) 110 ml @ 110 mls/hr Q24H IVPB Last administered on 08/30/16 18:38; Admin Dose 110 MLS/HR; Start 08/30/16 at 17:30; Stop 09/03/16 at 18:29 Potassium Chloride (Potassium Chloride Pwd/Soln) 40 meq ONCE ONCE NGT ; Start 08/31/16 at 14:00; Stop 08/31/16 at 14:01; Status UNV Potassium Chloride 40 meq 40 meq ONCE ONCE NGT ; Start 08/31/16 at 21:00; Stop 08/31/16 at 21:01; Status UNV Magnesium Sulfate/ Sodium Chloride (Magnesium Sulfate/NS) 106 ml @ 35.333 mls/ hr ONCE ONCE IVPB ; Start 08/31/16 at 14:00; Stop 08/31/16 at 16:59; Status UNV CYNDI VELASQUEZ M.D. Aug 31, 2016 14:05
--- NOTE | 2016-08-31 14:14 | PN ---
DATE: 08/28/2016 CHIEF COMPLAINT: Rapid response was called because of transient unresponsiveness. HISTORY OF PRESENT ILLNESS: Mr. Falcon is a 71-year-old male with chronic respiratory failure stat us post tracheostomy who was admitted by Dr. Comer's team because of severe anemia. He is status post transfusion, but earlier today he had been having some difficulty with the nurses as well as r espiratory therapist because of a valve that he usually uses to phonate, but the staph thought that it was not safe for him to have it. His primary care physician did not think it was safe as well, a nd hence, pulmonology consultation was obtained. The patient was said to have a lot of secretions, and when he had the valve in earlier, the valve had gotten clogged with secretions and as such was d iscontinued. Based on that, the primary care physician and the respiratory therapist recommended no further use of the valve. However, it seems the patient got very anxious because he was not allowe d to use the valve and began hyperventilating and had a short period of unresponsiveness. Based on this, a rapid response was called. By the time I arrived to the patient's bedside, the patient was alert again and oriented, though he was very, very anxious. PHYSICAL EXAMINATION: VITAL SIGNS: His vital signs were reviewed, and systolic blood pressure was in the 140s with diasto lic blood pressures in the 80s. His saturations were 97% on tracheostomy to T-piece with 98% FiO2. His heart rate was in the 80s. GENERAL: He was very anxious and in tears. HEENT: Head was normocephalic, however. Pupils were equal and reactive. NECK: Tracheostomy. CHEST: He had very reduced air entry bilaterally with very loud coarse crackles suggestive of secre tions. CARDIOVASCULAR: Heart sounds S1 and S2. No murmurs. ABDOMEN: Soft, nontender. EXTREMITIES: He had no lower extremity edema. His was at the bedside. NEUROLOGIC: He does not seem to have any new deficits. ASSESSMENT AND PLAN: I made a diagnosis of severe anxiety and ordered the patient be given intraven ous Ativan 0.5 mg x1. After the Ativan, I also sat at the bedside and spoke with the patient and hi s , and I explained the reasoning for the therapist as well as the nursing staff to the patient. I also notified the patient that the contracting executive will be consulting on him and will be able to c larify any discrepancies if there were in terms of use of the valve. After about 15 to 20 minutes, the patient was calmer. Based on his overall respiratory status, the presence of lots of secretions , the fact that he is a trached patient to T-piece, and the fact that on his physical examination hi s ventilation was not Dictated By: TESSA PRATT MD, BA/NTS Conf#: [id number] DID#: [id number]
--- NOTE | 2016-08-31 14:29 | CONS ---
Date/Time of Note Date/Time of Note DATE: 08/31/16 TIME: 14:27 Consult Date/Type/Reason Admit Date/Time Aug 28, 2016 at 10:58 Initial Consult Date 08/30/16 Type of Consultation: pulmonary Ordering Provider: ETHAN DELONG MD Subjective Patient doing okay this morning still has moderate secretions Objective Vital Signs Date Time Temp Pulse Resp B/P Pulse Ox O2 Delivery O2 Flow Rate FiO2 08/31/16 14:08 98 5.0 28 08/31/16 14:08 76 20 Aerosol T Tube 08/31/16 11:31 98.5 119/59 Intake and Output 08/30/16 08/30/16 08/31/16 14:59 22:59 06:59 Intake Total 410 ml Output Total 750 ml Balance 410 ml -750 ml PHYSICAL EXAMINATION: VITAL SIGNS: as above NECK: Supple. No JVD or lymphadenopathy. Trach site clean and intact. CARDIAC: S1, S2, no added sounds or murmurs. CHEST: Diminished air entry both lung [place]. ABDOMEN: Soft, nontender. No guarding or rebound. EXTREMITIES: No cyanosis, clubbing or edema. NEUROLOGIC: Lower extremity weakness. Results/Medications Result Diagram: 08/31/16 0559 08/31/16 0559 Results 24 hrs Laboratory Tests Test 08/30/16 18:36 08/30/16 20:39 08/31/16 02:07 08/31/16 05:21 Bedside Glucose 221 H 176 118 98 Test 08/31/16 05:59 08/31/16 10:22 08/31/16 12:44 Anion Gap 16 Basophils # 0.0 Basophils % 0.7 Blood Morphology Comment Blood Urea Nitrogen 30 H Calcium Level 8.7 Carbon Dioxide Level 27 Chloride Level 104 Creatinine 0.93 Eosinophils # 0.4 Eosinophils % 6.5 Glucose Level 85 # Hematocrit 27.7 L Hemoglobin 9.7 L Lymphocytes # 1.1 Lymphocytes % 17.2 Magnesium Level 1.8 Mean Corpuscular Hemoglobin 33.2 H Mean Corpuscular Hemoglobin Concent 35.1 Mean Corpuscular Volume 94.6 Mean Platelet Volume 7.4 Monocytes # 0.6 Monocytes % 8.7 Neutrophils # 4.4 Neutrophils % 66.9 Nucleated Red Blood Cells # 0.0 Nucleated Red Blood Cells % 0.0 Platelet Count 242 Potassium Level 3.5 Red Blood Count 2.92 L Red Cell Distribution Width 14.4 Sodium Level 143 White Blood Count 6.6 Bedside Glucose 136 184 Medications Current Medications Amlodipine Besylate (Norvasc) 5 mg DAILY GTB Last administered on 08/31/16 09: 36; Admin Dose 5 MG; Start 08/27/16 at 09:00 Ascorbic Acid (Vitamin C) 500 mg DAILY GTB Last administered on 08/31/16 09:36 ; Admin Dose 500 MG; Start 08/27/16 at 09:00 Fluconazole (Diflucan) 100 mg DAILY GTB Last administered on 08/31/16 09:30; Admin Dose 100 MG; Start 08/27/16 at 09:00 Levetiracetam (Keppra Liquid) 2,000 mg BID GTB Last administered on 08/31/16 09:33; Admin Dose 2,000 MG; Start 08/26/16 at 21:00 Metoprolol Tartrate (Lopressor) 100 mg BID GTB Last administered on 08/31/16 09:35; Admin Dose 100 MG; Start 08/26/16 at 21:00 Mupirocin (Bactroban) APPLY TO NARES DAILY TOP Last administered on 08/29/16 09:43; Admin Dose 1 APPLIC; Start 08/26/16 at 23:59 Phenytoin (Dilantin Susp Cup) 250 mg Q12 GTB Last administered on 08/31/16 09: 30; Admin Dose 250 MG; Start 08/26/16 at 21:00 Gabapentin (Neurontin Liquid) 300 mg QHS GTB Last administered on 08/30/16 21: 32; Admin Dose 300 MG; Start 08/26/16 at 21:00 Gabapentin (Neurontin Liquid) 600 mg DAILY GTB Last administered on 08/31/16 09:40; Admin Dose 600 MG; Start 08/27/16 at 09:00 Acetaminophen (Tylenol Liquid) 650 mg Q6 PRN GTB PAIN OR TEMP ABOVE 38C Last administered on 08/30/16 16:47; Admin Dose 650 MG; Start 08/27/16 at 11:30 Bisacodyl (Dulcolax Supp) 10 mg DAILY PRN [place] CONSTIPATION; Start 08/27/16 at 11 :30 Chlorhexidine Gluconate (Peridex) 10 ml BID MM Last administered on 08/31/16 09:59; Admin Dose 10 ML; Start 08/27/16 at 21:00 Doxazosin Mesylate (Cardura) 2 mg QHS PO Last administered on 08/30/16 21:33; Admin Dose 2 MG; Start 08/27/16 at 21:00 Ferrous Sulfate (Ferrous Sulfate (Ec)) 325 mg BID PO Last administered on 09:38; Admin Dose 325 MG; Start 08/27/16 at 21:00 Hydralazine HCl (Apresoline) 50 mg Q8 GTB Last administered on 08/31/16 13:34 ; Admin Dose 50 MG; Start 08/27/16 at 14:00 Acetaminophen/ Hydrocodone Bitart ([place] (5/325)) 1 tab Q6 PRN GTB PAIN; Start 08/27/16 at 11:30 Latanoprost (Xalatan) 1 drop QHS LEFT EYE Last administered on 08/30/16 21:30 ; Admin Dose 1 DROP; Start 08/27/16 at 21:00 Losartan Potassium (Cozaar) 50 mg DAILY GTB Last administered on 08/31/16 09: 29; Admin Dose 50 MG; Start 08/28/16 at 09:00 Magnesium Hydroxide (Milk Of Mag) 30 ml DAILY PRN GTB CONSTIPATION; Start 08/27 at 11:30 Multivitamins Therapeutic (Theragran) 1 tab DAILY GTB Last administered on 08/31 09:36; Admin Dose 1 TAB; Start 08/28/16 at 09:00 Ondansetron HCl (Zofran (Ped)) 4 mg Q8 PRN GTB NAUSEA; Start 08/27/16 at 11:30 Senna (Senokot) 1 tab DAILY PRN GTB CONSTIPATION; Start 08/27/16 at 11:30 Zolpidem Tartrate (Ambien) 5 mg QHS PRN GTB INSOMNIA Last administered on 22:57; Admin Dose 5 MG; Start 08/27/16 at 11:30 Diagnostic Test (Pha) (Accucheck) 1 ea 02 XX Last administered on 08/31/16 02: 09; Admin Dose 1 EA; Start 08/28/16 at 02:00 Miscellaneous Information 1 ea NOTE XX ; Start 08/27/16 at 11:30 Glucose (Glutose) 15 gm Q15M PRN PO DECREASED GLUCOSE; Start 08/27/16 at 11:30 Glucose (Glutose) 22.5 gm Q15M PRN PO DECREASED GLUCOSE; Start 08/27/16 at 11: 30 Dextrose (D50w Syringe) 25 ml Q15M PRN IV DECREASED GLUCOSE; Start 08/27/16 at 11:30 Dextrose (D50w Syringe) 50 ml Q15M PRN IV DECREASED GLUCOSE; Start 08/27/16 at 11:30 Glucagon (Glucagen) 1 mg Q15M PRN IM DECREASED GLUCOSE; Start 08/27/16 at 11:30 Glucose 15 gm 15 gm Q15M PRN BUCCAL DECREASED GLUCOSE; Start 08/27/16 at 11:30 Potassium Chloride/Sodium Chloride (1/2 NS + KCl 20 Meq) 1,000 ml @ 70 mls/hr [id number] Last administered on 08/31/16 02:09; Admin Dose 70 MLS/HR; Start at 12:00 Lorazepam 0.5 mg 0.5 mg Q12 PRN IV ANXIETY; Start 08/28/16 at 18:00 Cefepime HCl (Maxipime 2gm/50 ml (Pmx)) 50 ml @ 100 mls/hr Q12 IVPB Last administered on 08/31/16 09:41; Admin Dose 100 MLS/HR; Start 08/29/16 at 15:30 Insulin Glargine (Lantus) 20 unit QHS SC Last administered on 08/30/16 20:46; Admin Dose 20 UNIT; Start 08/30/16 at 21:00 Insulin Aspart (Adult SC Insulin - Mild Algorithm)... Q4 SC Last administered on 08/31/16 13:40; Admin Dose 4 UNIT; Start 08/30/16 at 17:00 Ferric Sodium Gluconate Complex/ Sodium Chloride (Ferrlecit/NS) 110 ml @ 110 mls/hr Q24H IVPB Last administered on 08/30/16 18:38; Admin Dose 110 MLS/HR; Start 08/30/16 at 17:30; Stop 09/03/16 at 18:29 Potassium Chloride 40 meq 40 meq ONCE ONCE NGT ; Start 08/31/16 at 21:00; Stop 1/18/17 at 21:01 Magnesium Sulfate/ Sodium Chloride (Magnesium Sulfate/NS) 106 ml @ 35.333 mls/ hr ONCE ONCE IVPB ; Start 08/31/16 at 14:00; Stop 08/31/16 at 16:59 Bumetanide (Bumex) 1 mg DAILY GTB ; Start 09/01/16 at 09:00 Assessment/Plan Chief Complaint/Hosp Course IMPRESSION: 1. Chronic respiratory failure tracheostomy with cool aerosol 2. Probable healthcare associated tracheobronchitis 3. History of anemia. 4. Pulmonary edema with decreased ejection fraction. The patient should continue with supplemental O2. PLAN: 1. Continue with bronchodilators. 2. Continue antibiotics. 3. Deep venous thrombosis and gastrointestinal prophylaxis. 4. Speech therapy recommendations 5. Consider de-escalation of antibiotics 6. Discharge planning back to [facility] facility Problems: DONN LOTT MD, [facility] Aug 31, 2016 14:28
--- NOTE | 2016-08-31 16:03 | PN ---
Date/Time of Note Date/Time of Note DATE: 08/31/16 TIME: 15:57 Assessment/Plan VTE Prophylaxis VTE Prophylaxis Intervention: SCD's Lines/Catheters IV C[facility]ter Type (from [facility] Peripheral IV Urinary Cath still in place: Yes Reason Cath still needed: urinary retention Assessment/Plan Chief Complaint/Hosp Course ASSESSMENT AND PLAN: 1. Anemia, rule out gastrointestinal bleed. s/p transfusion of packed red blood cells, stool for OB is negative. Dr. Troy is following in gastroenterology consultation. Continue patient on Protonix. Pt refused endoscopy. Dr. Ashley is following hematology consultation. Anemia workup in progress. 2. History of respiratory failure with tracheostomy. Continue cool aerosol mist, continue trach care, and pulmonary toilet. Dr Mello is following in pulm. consult. 3. Congestive heart failure. Continue patient on Lasix. 4. Diabetes mellitus type 2. Continue Lantus and NovoLog. 5. History of cerebrovascular accident and seizure disorder. Continue Keppra and Dilantin. 6. Low grade fever yesterday, follow up on cultures and chest x-ray, continue Cefepime. 7. Chronic Rangel catheter, patient refused to change Rangel catheter. 8. Possible gram-negative rods urinary tract infection, continue antibiotic, follow up on cultures. Patient passed swallow evaluation, will start mechanical soft diet. Okay to transfer to medical surgical floor. We will anticipate discharge patient to long-term facility after anemia workup complete. Plan of care is discussed with patient and the patient agrees to plan of care. Sequential compression devices for deep venous thrombosis prophylaxis. Further recommendations based on clinical course. Plan of care discussed with Dr. Fan Problems: Subjective 24 Hr Interval Summary Free Text/Dictation Patient gets anxious overnight, rapid response was called, patient was given Ativan for anxiety. Patient is currently calm and cooperative. Patient passed video-assisted swallow evaluation and will be started on diet. Exam/Review of Systems Vital Signs Vitals Vital Signs Date Time Temp Pulse Resp B/P Pulse Ox O2 Delivery O2 Flow Rate FiO2 08/31/16 15:05 98.2 83 20 98/50 98 08/31/16 14:08 5.0 28 08/31/16 14:08 Aerosol T Tube Intake and Output 08/30/16 08/30/16 08/31/16 15:00 23:00 07:00 Intake Total 410 ml Output Total 750 ml Balance 410 ml -750 ml Exam GENERAL: Well-developed, well-nourished male who currently is awake, alert. HEENT: Head is atraumatic, normocephalic. PERRLA. NECK: Supple. The patient has a tracheostomy at the base of the neck CHEST: Lung sounds are slightly diminished at the bases. Scattered rhonchi bilaterally. CARDIOVASCULAR: Normal S1, S2. No murmurs, gallops, clicks, rubs noted. ABDOMEN: Round, soft, nondistended, and nontender. The patient has a G-tube with intact stoma. EXTREMITIES: No edema, clubbing, cyanosis. Pulses equal bilaterally 2+. SKIN: There is no rash noted. NEUROLOGIC: The patient is awake, alert to name and situation. Results Result Diagram: 08/31/16 0559 08/31/16 0559 Results 24 hrs Laboratory Tests Test 08/30/16 18:36 08/30/16 20:39 08/31/16 02:07 08/31/16 05:21 Bedside Glucose 221 H 176 118 98 Test 08/31/16 05:59 08/31/16 10:22 08/31/16 12:44 Anion Gap 16 Basophils # 0.0 Basophils % 0.7 Blood Morphology Comment Blood Urea Nitrogen 30 H Calcium Level 8.7 Carbon Dioxide Level 27 Chloride Level 104 Creatinine 0.93 Eosinophils # 0.4 Eosinophils % 6.5 Glucose Level 85 # Hematocrit 27.7 L Hemoglobin 9.7 L Lymphocytes # 1.1 Lymphocytes % 17.2 Magnesium Level 1.8 Mean Corpuscular Hemoglobin 33.2 H Mean Corpuscular Hemoglobin Concent 35.1 Mean Corpuscular Volume 94.6 Mean Platelet Volume 7.4 Monocytes # 0.6 Monocytes % 8.7 Neutrophils # 4.4 Neutrophils % 66.9 Nucleated Red Blood Cells # 0.0 Nucleated Red Blood Cells % 0.0 Platelet Count 242 Potassium Level 3.5 Red Blood Count 2.92 L Red Cell Distribution Width 14.4 Sodium Level 143 White Blood Count 6.6 Bedside Glucose 136 184 Medications Medications Current Medications Amlodipine Besylate (Norvasc) 5 mg DAILY GTB Last administered on 08/31/16 09: 36; Admin Dose 5 MG; Start 08/27/16 at 09:00 Ascorbic Acid (Vitamin C) 500 mg DAILY GTB Last administered on 08/31/16 09:36 ; Admin Dose 500 MG; Start 08/27/16 at 09:00 Fluconazole (Diflucan) 100 mg DAILY GTB Last administered on 08/31/16 09:30; Admin Dose 100 MG; Start 08/27/16 at 09:00 Levetiracetam (Keppra Liquid) 2,000 mg BID GTB Last administered on 08/31/16 09:33; Admin Dose 2,000 MG; Start 08/26/16 at 21:00 Metoprolol Tartrate (Lopressor) 100 mg BID GTB Last administered on 08/31/16 09:35; Admin Dose 100 MG; Start 08/26/16 at 21:00 Mupirocin (Bactroban) APPLY TO NARES DAILY TOP Last administered on 08/29/16 09:43; Admin Dose 1 APPLIC; Start 08/26/16 at 23:59 Phenytoin (Dilantin Susp Cup) 250 mg Q12 GTB Last administered on 08/31/16 09: 30; Admin Dose 250 MG; Start 08/26/16 at 21:00 Gabapentin (Neurontin Liquid) 300 mg QHS GTB Last administered on 08/30/16 21: 32; Admin Dose 300 MG; Start 08/26/16 at 21:00 Gabapentin (Neurontin Liquid) 600 mg DAILY GTB Last administered on 08/31/16 09:40; Admin Dose 600 MG; Start 08/27/16 at 09:00 Acetaminophen (Tylenol Liquid) 650 mg Q6 PRN GTB PAIN OR TEMP ABOVE 38C Last administered on 08/30/16 16:47; Admin Dose 650 MG; Start 08/27/16 at 11:30 Bisacodyl (Dulcolax Supp) 10 mg DAILY PRN [place] CONSTIPATION; Start 08/27/16 at 11 :30 Chlorhexidine Gluconate (Peridex) 10 ml BID MM Last administered on 08/31/16 09:59; Admin Dose 10 ML; Start 08/27/16 at 21:00 Doxazosin Mesylate (Cardura) 2 mg QHS PO Last administered on 08/30/16 21:33; Admin Dose 2 MG; Start 08/27/16 at 21:00 Ferrous Sulfate (Ferrous Sulfate (Ec)) 325 mg BID PO Last administered on 09:38; Admin Dose 325 MG; Start 08/27/16 at 21:00 Hydralazine HCl (Apresoline) 50 mg Q8 GTB Last administered on 08/31/16 13:34 ; Admin Dose 50 MG; Start 08/27/16 at 14:00 Acetaminophen/ Hydrocodone Bitart ([place] (5/325)) 1 tab Q6 PRN GTB PAIN; Start 08/27/16 at 11:30 Latanoprost (Xalatan) 1 drop QHS LEFT EYE Last administered on 08/30/16 21:30 ; Admin Dose 1 DROP; Start 08/27/16 at 21:00 Losartan Potassium (Cozaar) 50 mg DAILY GTB Last administered on 08/31/16 09: 29; Admin Dose 50 MG; Start 08/28/16 at 09:00 Magnesium Hydroxide (Milk Of Mag) 30 ml DAILY PRN GTB CONSTIPATION; Start 08/27 at 11:30 Multivitamins Therapeutic (Theragran) 1 tab DAILY GTB Last administered on 08/31 09:36; Admin Dose 1 TAB; Start 08/28/16 at 09:00 Ondansetron HCl (Zofran (Ped)) 4 mg Q8 PRN GTB NAUSEA; Start 08/27/16 at 11:30 Senna (Senokot) 1 tab DAILY PRN GTB CONSTIPATION; Start 08/27/16 at 11:30 Zolpidem Tartrate (Ambien) 5 mg QHS PRN GTB INSOMNIA Last administered on 22:57; Admin Dose 5 MG; Start 08/27/16 at 11:30 Diagnostic Test (Pha) (Accucheck) 1 ea 02 XX Last administered on 08/31/16 02: 09; Admin Dose 1 EA; Start 08/28/16 at 02:00 Miscellaneous Information 1 ea NOTE XX ; Start 08/27/16 at 11:30 Glucose (Glutose) 15 gm Q15M PRN PO DECREASED GLUCOSE; Start 08/27/16 at 11:30 Glucose (Glutose) 22.5 gm Q15M PRN PO DECREASED GLUCOSE; Start 08/27/16 at 11: 30 Dextrose (D50w Syringe) 25 ml Q15M PRN IV DECREASED GLUCOSE; Start 08/27/16 at 11:30 Dextrose (D50w Syringe) 50 ml Q15M PRN IV DECREASED GLUCOSE; Start 08/27/16 at 11:30 Glucagon (Glucagen) 1 mg Q15M PRN IM DECREASED GLUCOSE; Start 08/27/16 at 11:30 Glucose 15 gm 15 gm Q15M PRN BUCCAL DECREASED GLUCOSE; Start 08/27/16 at 11:30 Potassium Chloride/Sodium Chloride (1/2 NS + KCl 20 Meq) 1,000 ml @ 70 mls/hr [id number] IV Last administered on 08/31/16 02:09; Admin Dose 70 MLS/HR; Start at 12:00 Lorazepam 0.5 mg 0.5 mg Q12 PRN IV ANXIETY; Start 08/28/16 at 18:00 Cefepime HCl (Maxipime 2gm/50 ml (Pmx)) 50 ml @ 100 mls/hr Q12 IVPB Last administered on 08/31/16 09:41; Admin Dose 100 MLS/HR; Start 08/29/16 at 15:30 Insulin Glargine (Lantus) 20 unit QHS SC Last administered on 08/30/16 20:46; Admin Dose 20 UNIT; Start 08/30/16 at 21:00 Insulin Aspart (Adult SC Insulin - Mild Algorithm)... Q4 SC Last administered on 08/31/16 13:40; Admin Dose 4 UNIT; Start 08/30/16 at 17:00 Ferric Sodium Gluconate Complex/ Sodium Chloride (Ferrlecit/NS) 110 ml @ 110 mls/hr Q24H IVPB Last administered on 08/30/16 18:38; Admin Dose 110 MLS/HR; Start 08/30/16 at 17:30; Stop 09/03/16 at 18:29 Potassium Chloride 40 meq 40 meq ONCE ONCE NGT ; Start 08/31/16 at 21:00; Stop 08/31/16 at 21:01 Magnesium Sulfate/ Sodium Chloride (Magnesium Sulfate/NS) 106 ml @ 35.333 mls/ hr ONCE ONCE IVPB Last administered on 08/31/16 15:34; Admin Dose 35.333 MLS/ HR; Start 08/31/16 at 14:00; Stop 08/31/16 at 16:59 Bumetanide (Bumex) 1 mg DAILY GTB ; Start 09/01/16 at 09:00 VIRGEN MARCUS Aug 31, 2016 16:03
[2016-08-31] MEDS: SOD FERRIC GLUC COMPLX 125 MG in SOD CHLORIDE 0.9% 100 ML IVPB SCH (20:14)
[2016-08-31] MEDS: DOXAZOSIN 2 MG TAB PO SCH (20:19)
[2016-08-31] MEDS: LATANOPROST 0.005% 2.5 ML OPH LEFT EYE SCH (20:25)
[2016-08-31] MEDS: INSULIN GLARGINE [LANtus] 3 ML PEN SC SCH (21:07)
[2016-08-31] MEDS: ZOLPIDEM 5 MG TAB GTB PRN (23:05)
[2016-09-01] VITALS (9 sets, daily range): BP systolic 119–148; BP diastolic 57–66; PULSE 71–78; RESP 18–20
[2016-09-01] MEDS: ALBUTEROL/IPRATROPIUM (NEB) 3 ML AMP HHN SCH ×4 (01:33→20:19)
[2016-09-01] MEDS: Insulin NOVOLOG SS MILD Algorithm (NPO/TPN/ENTERAL FEEDS) SC SCH ×5 (01:48→17:40)
[2016-09-01] MEDS: ACCUCHECK XX SCH (02:00)
[2016-09-01 04:17] LABS: PROTEIN, TOTAL 5.9 g/dL (6.1-8.1)
[2016-09-01] MEDS: SPIRONOLACTONE 25 MG TAB GTB SCH ×2 (05:32→18:36)
[2016-09-01] MEDS: 1/2 NS + KCL 20 MEQ 1,000 ML IV SCH (06:43)
[2016-09-01 06:55] LABS: BASOPHILS % 0.4 % (0.0-2.0); EOSINOPHILS # 0.4 10^3/ul (0.0-0.5); EOSINOPHILS % 5.9 % (0.0-7.0); HEMATOCRIT 27.1 % (42.0-52.0); HEMOGLOBIN 9.3 g/dl (14.0-18.0); LYMPHOCYTES # 1.1 10^3/ul (0.8-2.9); LYMPHOCYTES % 18.5 % (15.0-51.0); MEAN CORPUSCULAR HEMOGLOBIN 32.9 pg (29.0-33.0); MEAN CORPUSCULAR HGB CONC 34.4 g/dl (32.0-37.0); MEAN CORPUSCULAR VOLUME 95.4 fl (82.0-101.0); MEAN PLATELET VOLUME 7.6 fl (7.4-10.4); MONOCYTE # 0.5 10^3/ul (0.3-0.9); MONOCYTES % 7.6 % (0.0-11.0); NEUTROPHIL # 4.1 10^3/ul (1.6-7.5); NEUTROPHILS % 67.6 % (39.0-77.0); PLATELET COUNT 204 10^3/UL (140-440); RED BLOOD COUNT 2.84 10^6/ul (4.70-6.10); RED CELL DISTRIBUTION WIDTH 14.1 % (11.5-14.5); UNCORRECTED WBC 6.1 10^3/ul (4.8-10.8); WHITE BLOOD COUNT 6.1 10^3/ul (4.8-10.8)
[2016-09-01 07:04] LABS: POTASSIUM 4.1 mmol/L (3.5-5.1)
[2016-09-01 07:07] LABS: CONDITION 1; CREATININE 0.99 mg/dl (0.61-1.24)
[2016-09-01 07:08] LABS: CALCIUM 8.4 mg/dl (8.4-10.2)
[2016-09-01] MEDS ORDERED: BUMETANIDE 1 MG TAB GTB SCH (09:00)
[2016-09-01] MEDS: CHLORHEXIDINE GLUCONATE 15 ML UD CUP MM SCH ×2 (09:17→20:05)
[2016-09-01] MEDS: MULTIVITAMINS THERAPEUTIC TAB GTB SCH (09:18)
[2016-09-01] MEDS: MUPIROCIN 2% 22 GM OINT TOP SCH (09:18)
[2016-09-01] MEDS: FLUCONAZOLE 100 MG TAB GTB SCH (09:18)
[2016-09-01] MEDS: AMLODIPINE 5 MG TAB GTB SCH (09:19)
[2016-09-01] MEDS: FERROUS SULFATE (EC) 325 MG TAB PO SCH ×2 (09:19→20:06)
[2016-09-01] MEDS: METOPROLOL 100 MG TAB GTB SCH ×2 (09:19→20:11)
[2016-09-01] MEDS: LOSARTAN 50 MG TAB GTB SCH (09:19)
[2016-09-01] MEDS: ASCORBIC ACID 500 MG TAB GTB SCH (09:19)
[2016-09-01] MEDS: LEVETIRACETAM (100 MG/ML) 5ML CUP GTB SCH ×2 (09:20→20:03)
[2016-09-01] MEDS: PHENYTOIN (100 MG/4 ML) CUP GTB SCH ×2 (09:20→20:02)
[2016-09-01] MEDS: GABAPENTIN (50 MG/ML PO SYG) GTB SCH (09:20)
[2016-09-01] MEDS: CEFEPIME 2GM/50 ML (PMX) 50 ML IVPB SCH ×2 (09:36→19:43)
--- NOTE | 2016-09-01 10:34 | CONS ---
Date/Time of Note Date/Time of Note DATE: 09/01/16 TIME: 10:33 Assessment/Plan Assessment/Plan Chief Complaint/Hosp Course 71 yo with COPD and chronic trach dependance admitted for anemia. Anemia panel does not reveal overt iron deficiency but low TIBC does support a component of chronic inflammation. A normal LDH makes hemolysis unlikely. Vitamin b12 and folate levels are ok. Pt is currently refusing EGD but stool ob was negative. -would continue Protonix in the case of underlying GI bleed as cause of anemia. -if anemia persists pt will need a bone marrow bx down the road -will check retic count for now which will give us some insight into bone marrow function -will check erythropoietin level in the case of underlying MDS, to see if patient would benefit from Epogen -f/u SPEP -given mild iron deficiency anemia, continue IV ferrilicit at this time Approximately 40 min were spent at patient's bedside and in coordination of his care Problems: Consultation Date/Type/Reason Admit Date/Time Aug 28, 2016 at 10:58 Initial Consult Date 08/30/16 Type of Consultation: Oncology Reason for Consultation iron deficiency anemia Referring Provider: ETHAN DELONG MD 24 HR Interval Summary Free Text/Dictation patient continues on IV iron Exam/Review of Systems Vital Signs Vitals Vital Signs Date Time Temp Pulse Resp B/P Pulse Ox O2 Delivery O2 Flow Rate FiO2 09/01/16 10:16 5.0 09/01/16 07:31 78 18 98 Aerosol 28 09/01/16 07:10 98.4 129/62 Intake and Output 08/31/16 08/31/16 09/01/16 15:00 23:00 07:00 Intake Total 590 ml 1350 ml Output Total 800 ml 800 ml Balance -210 ml 550 ml Exam Constitutional: alert Psych: no complaints Head: atraumatic, normocephalic Eyes: nl conjunctiva ENMT: nl external ears & nose, nl lips & teeth Neck: non-tender, other (trach in place), supple Respiratory: clear to auscultation, normal air movement Cardiovascular: regular rate and rhythm Gastrointestinal: soft Musculoskeletal: nl extremities to inspection, nl gait and stance Results Result Diagram: 09/01/16 0600 09/01/16 0600 Results 24 hrs Laboratory Tests Test 08/31/16 12:44 08/31/16 17:04 08/31/16 20:53 09/01/16 01:39 Bedside Glucose 184 208 234 H 171 Test 09/01/16 05:36 09/01/16 06:00 09/01/16 07:47 Bedside Glucose 161 161 Anion Gap 15 Basophils # 0.0 Basophils % 0.4 Blood Urea Nitrogen 32 H Calcium Level 8.4 Carbon Dioxide Level 23 Chloride Level 104 Creatinine 0.99 Eosinophils # 0.4 Eosinophils % 5.9 Glucose Level 142 # Hematocrit 27.1 L Hemoglobin 9.3 L Lymphocytes # 1.1 Lymphocytes % 18.5 Mean Corpuscular Hemoglobin 32.9 Mean Corpuscular Hemoglobin Concent 34.4 Mean Corpuscular Volume 95.4 Mean Platelet Volume 7.6 Monocytes # 0.5 Monocytes % 7.6 Neutrophils # 4.1 Neutrophils % 67.6 Nucleated Red Blood Cells # 0.0 Nucleated Red Blood Cells % 0.0 Platelet Count 204 Potassium Level 4.1 Red Blood Count 2.84 L Red Cell Distribution Width 14.1 Sodium Level 138 White Blood Count 6.1 Medications Medications Current Medications Amlodipine Besylate (Norvasc) 5 mg DAILY GTB Last administered on 09/01/16 09: 19; Admin Dose 5 MG; Start 08/27/16 at 09:00 Ascorbic Acid (Vitamin C) 500 mg DAILY GTB Last administered on 09/01/16 09:19 ; Admin Dose 500 MG; Start 08/27/16 at 09:00 Fluconazole (Diflucan) 100 mg DAILY GTB Last administered on 09/01/16 09:18; Admin Dose 100 MG; Start 08/27/16 at 09:00 Levetiracetam (Keppra Liquid) 2,000 mg BID GTB Last administered on 09/01/16 09:20; Admin Dose 2,000 MG; Start 08/26/16 at 21:00 Metoprolol Tartrate (Lopressor) 100 mg BID GTB Last administered on 09/01/16 09:19; Admin Dose 100 MG; Start 08/26/16 at 21:00 Mupirocin (Bactroban) APPLY TO NARES DAILY TOP Last administered on 09/01/16 09:18; Admin Dose 1 APPLIC; Start 08/26/16 at 23:59 Phenytoin (Dilantin Susp Cup) 250 mg Q12 GTB Last administered on 09/01/16 09: 20; Admin Dose 250 MG; Start 08/26/16 at 21:00 Gabapentin (Neurontin Liquid) 300 mg QHS GTB Last administered on 08/31/16 20: 25; Admin Dose 300 MG; Start 08/26/16 at 21:00 Gabapentin (Neurontin Liquid) 600 mg DAILY GTB Last administered on 09/01/16 09:20; Admin Dose 600 MG; Start 08/27/16 at 09:00 Acetaminophen (Tylenol Liquid) 650 mg Q6 PRN GTB PAIN OR TEMP ABOVE 38C Last administered on 08/30/16 16:47; Admin Dose 650 MG; Start 08/27/16 at 11:30 Bisacodyl (Dulcolax Supp) 10 mg DAILY PRN [place] CONSTIPATION; Start 08/27/16 at 11 :30 Chlorhexidine Gluconate (Peridex) 10 ml BID MM Last administered on 09/01/16 09:17; Admin Dose 10 ML; Start 08/27/16 at 21:00 Doxazosin Mesylate (Cardura) 2 mg QHS PO Last administered on 08/31/16 20:19; Admin Dose 2 MG; Start 08/27/16 at 21:00 Ferrous Sulfate (Ferrous Sulfate (Ec)) 325 mg BID PO Last administered on 09:19; Admin Dose 325 MG; Start 08/27/16 at 21:00 Hydralazine HCl (Apresoline) 50 mg Q8 GTB Last administered on 09/01/16 05:33 ; Admin Dose 50 MG; Start 08/27/16 at 14:00 Acetaminophen/ Hydrocodone Bitart ([place] (5/325)) 1 tab Q6 PRN GTB PAIN; Start 08/27/16 at 11:30 Latanoprost (Xalatan) 1 drop QHS LEFT EYE Last administered on 08/31/16 20:25 ; Admin Dose 1 DROP; Start 08/27/16 at 21:00 Losartan Potassium (Cozaar) 50 mg DAILY GTB Last administered on 09/01/16 09: 19; Admin Dose 50 MG; Start 08/28/16 at 09:00 Magnesium Hydroxide (Milk Of Mag) 30 ml DAILY PRN GTB CONSTIPATION; Start 08/27 at 11:30 Multivitamins Therapeutic (Theragran) 1 tab DAILY GTB Last administered on 09/01 09:18; Admin Dose 1 TAB; Start 08/28/16 at 09:00 Ondansetron HCl (Zofran (Ped)) 4 mg Q8 PRN GTB NAUSEA; Start 08/27/16 at 11:30 Senna (Senokot) 1 tab DAILY PRN GTB CONSTIPATION; Start 08/27/16 at 11:30 Zolpidem Tartrate (Ambien) 5 mg QHS PRN GTB INSOMNIA Last administered on 23:05; Admin Dose 5 MG; Start 08/27/16 at 11:30 Diagnostic Test (Pha) (Accucheck) 1 ea 02 XX Last administered on 08/31/16 02: 09; Admin Dose 1 EA; Start 08/28/16 at 02:00 Miscellaneous Information 1 ea NOTE XX ; Start 08/27/16 at 11:30 Glucose (Glutose) 15 gm Q15M PRN PO DECREASED GLUCOSE; Start 08/27/16 at 11:30 Glucose (Glutose) 22.5 gm Q15M PRN PO DECREASED GLUCOSE; Start 08/27/16 at 11: 30 Dextrose (D50w Syringe) 25 ml Q15M PRN IV DECREASED GLUCOSE; Start 08/27/16 at 11:30 Dextrose (D50w Syringe) 50 ml Q15M PRN IV DECREASED GLUCOSE; Start 08/27/16 at 11:30 Glucagon (Glucagen) 1 mg Q15M PRN IM DECREASED GLUCOSE; Start 08/27/16 at 11:30 Glucose 15 gm 15 gm Q15M PRN BUCCAL DECREASED GLUCOSE; Start 08/27/16 at 11:30 Potassium Chloride/Sodium Chloride (1/2 NS + KCl 20 Meq) 1,000 ml @ 70 mls/hr [id number] IV Last administered on 09/01/16 06:43; Admin Dose 70 MLS/HR; Start at 12:00 Lorazepam 0.5 mg 0.5 mg Q12 PRN IV ANXIETY; Start 08/28/16 at 18:00 Cefepime HCl (Maxipime 2gm/50 ml (Pmx)) 50 ml @ 100 mls/hr Q12 IVPB Last administered on 09/01/16 09:36; Admin Dose 100 MLS/HR; Start 08/29/16 at 15:30 Insulin Glargine (Lantus) 20 unit QHS SC Last administered on 08/31/16 21:07; Admin Dose 20 UNIT; Start 08/30/16 at 21:00 Insulin Aspart (Adult SC Insulin - Mild Algorithm)... Q4 SC Last administered on 09/01/16 09:33; Admin Dose 1 UNIT; Start 08/30/16 at 17:00 Ferric Sodium Gluconate Complex/ Sodium Chloride (Ferrlecit/NS) 110 ml @ 110 mls/hr Q24H IVPB Last administered on 08/31/16 20:14; Admin Dose 110 MLS/HR; Start 08/30/16 at 17:30; Stop 09/03/16 at 18:29 Bumetanide (Bumex) 1 mg DAILY GTB Last administered on 09/01/16 09:18; Admin Dose 1 MG; Start 09/01/16 at 09:00 CYNDI VELASQUEZ M.D. Sep 01, 2016 10:34
--- NOTE | 2016-09-01 13:47 | PN ---
DATE: PULMONARY FOLLOWUP NOTE SUBJECTIVE: The patient still remains stable. No new events. Vital signs stable. He is toleratin g PMV valve with speech therapy. VITAL SIGNS: Temperature 98, pulse 73, blood pressure 119/57, O2 saturation 96% on cool aerosol. NECK: Supple, no JVD or lymphadenopathy. CARDIAC: S1, S2, no added sounds or murmurs. CHEST: Diminished air entry bilaterally. ABDOMEN: Soft, nontender. No guarding or rebound. EXTREMITIES: No cyanosis, clubbing or edema. NEUROLOGIC: Generalized weakness. LABORATORY DATA: White count 6.1, hemoglobin 9.3. Chemistry within normal limits. IMPRESSION AND PLAN: 1. Resolved tracheobronchitis. 2. Chronic respiratory failure. 3. History of iron deficiency anemia. 4. Recent blood transfusion. The patient will need 1. Continued supplemental O2. 2. Pulmonary toilet. 3. Speech therapy recommendations. 4. Heme/onc recommendations. 4. Deep vein thrombosis and GI prophylaxis. From a pulmonary standpoint, the patient can be discharged back to custodial facility. Dictated By: DONN CHILDS/MARIO Conf#: [id number] DID#: [id number]
--- NOTE | 2016-09-01 15:16 | CONS ---
Date/Time of Note Date/Time of Note DATE: 09/01/16 TIME: 15:13 Assessment/Plan Assessment/Plan Additional Assessment/Plan Respiratory failure Acute blood loss anemia Acute decompensated diastolic congestive heart failure, improved Preserved ejection fraction Hypertension Diabetes Obesity -Patient continues to improve, would continue maintenance by mouth Bumex. Blood pressure trend appears stable. Maintain potassium above 4.0 and magnesium above 2.0. DC planning Consultation Date/Type/Reason Admit Date/Time Aug 28, 2016 at 10:58 Initial Consult Date 08/30/16 Type of Consultation: cv Referring Provider: ETHAN DELONG MD 24 HR Interval Summary Free Text/Dictation Shortness of breath continues to improve, still was secretions via trach Exam/Review of Systems Vital Signs Vitals Vital Signs Date Time Temp Pulse Resp B/P Pulse Ox O2 Delivery O2 Flow Rate FiO2 09/01/16 13:05 72 18 98 Aerosol 5.0 28 09/01/16 12:38 97.6 140/65 Intake and Output 08/31/16 08/31/16 09/01/16 15:00 23:00 07:00 Intake Total 590 ml 1350 ml Output Total 800 ml 800 ml Balance -210 ml 550 ml Exam No apparent distress, following commands Constitutional: alert, obese, oriented Head: normocephalic Neck: other (tracheostomy) Respiratory: other (course breath sounds bilaterally, no wheezing) Cardiovascular: other (S1 and S2 heard), regular rate and rhythm Gastrointestinal: bowel sounds, non-tender, soft Extremities: edema (trace) Results Result Diagram: 09/01/16 0600 09/01/16 0600 Results 24 hrs Laboratory Tests Test 08/31/16 17:04 08/31/16 20:53 09/01/16 01:39 09/01/16 05:36 Bedside Glucose 208 234 H 171 161 Test 09/01/16 06:00 09/01/16 07:47 09/01/16 11:44 09/01/16 12:51 Anion Gap 15 Basophils # 0.0 Basophils % 0.4 Blood Urea Nitrogen 32 H Calcium Level 8.4 Carbon Dioxide Level 23 Chloride Level 104 Creatinine 0.99 Eosinophils # 0.4 Eosinophils % 5.9 Glucose Level 142 # Hematocrit 27.1 L Hemoglobin 9.3 L Lymphocytes # 1.1 Lymphocytes % 18.5 Mean Corpuscular Hemoglobin 32.9 Mean Corpuscular Hemoglobin Concent 34.4 Mean Corpuscular Volume 95.4 Mean Platelet Volume 7.6 Monocytes # 0.5 Monocytes % 7.6 Neutrophils # 4.1 Neutrophils % 67.6 Nucleated Red Blood Cells # 0.0 Nucleated Red Blood Cells % 0.0 Platelet Count 204 Potassium Level 4.1 Red Blood Count 2.84 L Red Cell Distribution Width 14.1 Sodium Level 138 White Blood Count 6.1 Bedside Glucose 161 291 H 246 H Medications Medications Current Medications Amlodipine Besylate (Norvasc) 5 mg DAILY GTB Last administered on 09/01/16 09: 19; Admin Dose 5 MG; Start 08/27/16 at 09:00 Ascorbic Acid (Vitamin C) 500 mg DAILY GTB Last administered on 09/01/16 09:19 ; Admin Dose 500 MG; Start 08/27/16 at 09:00 Fluconazole (Diflucan) 100 mg DAILY GTB Last administered on 09/01/16 09:18; Admin Dose 100 MG; Start 08/27/16 at 09:00 Levetiracetam (Keppra Liquid) 2,000 mg BID GTB Last administered on 09/01/16 09:20; Admin Dose 2,000 MG; Start 08/26/16 at 21:00 Metoprolol Tartrate (Lopressor) 100 mg BID GTB Last administered on 09/01/16 09:19; Admin Dose 100 MG; Start 08/26/16 at 21:00 Mupirocin (Bactroban) APPLY TO NARES DAILY TOP Last administered on 09/01/16 09:18; Admin Dose 1 APPLIC; Start 08/26/16 at 23:59 Phenytoin (Dilantin Susp Cup) 250 mg Q12 GTB Last administered on 09/01/16 09: 20; Admin Dose 250 MG; Start 08/26/16 at 21:00 Gabapentin (Neurontin Liquid) 300 mg QHS GTB Last administered on 08/31/16 20: 25; Admin Dose 300 MG; Start 08/26/16 at 21:00 Gabapentin (Neurontin Liquid) 600 mg DAILY GTB Last administered on 09/01/16 09:20; Admin Dose 600 MG; Start 08/27/16 at 09:00 Acetaminophen (Tylenol Liquid) 650 mg Q6 PRN GTB PAIN OR TEMP ABOVE 38C Last administered on 08/30/16 16:47; Admin Dose 650 MG; Start 08/27/16 at 11:30 Bisacodyl (Dulcolax Supp) [address] CONSTIPATION; Start 08/27/16 at 11 :30 Chlorhexidine Gluconate (Peridex) 10 ml BID MM Last administered on 09/01/16 09:17; Admin Dose 10 ML; Start 08/27/16 at 21:00 Doxazosin Mesylate (Cardura) 2 mg QHS PO Last administered on 08/31/16 20:19; Admin Dose 2 MG; Start 08/27/16 at 21:00 Ferrous Sulfate (Ferrous Sulfate (Ec)) 325 mg BID PO Last administered on 09:19; Admin Dose 325 MG; Start 08/27/16 at 21:00 Hydralazine HCl (Apresoline) 50 mg Q8 GTB Last administered on 09/01/16 13:28 ; Admin Dose 50 MG; Start 08/27/16 at 14:00 Acetaminophen/ Hydrocodone Bitart ([place] (5/325)) 1 tab Q6 PRN GTB PAIN; Start 08/27/16 at 11:30 Latanoprost (Xalatan) 1 drop QHS LEFT EYE Last administered on 08/31/16 20:25 ; Admin Dose 1 DROP; Start 08/27/16 at 21:00 Losartan Potassium (Cozaar) 50 mg DAILY GTB Last administered on 09/01/16 09: 19; Admin Dose 50 MG; Start 08/28/16 at 09:00 Magnesium Hydroxide (Milk Of Mag) 30 ml DAILY PRN GTB CONSTIPATION; Start 08/27 at 11:30 Multivitamins Therapeutic (Theragran) 1 tab DAILY GTB Last administered on 09/01 09:18; Admin Dose 1 TAB; Start 08/28/16 at 09:00 Ondansetron HCl (Zofran (Ped)) 4 mg Q8 PRN GTB NAUSEA; Start 08/27/16 at 11:30 Senna (Senokot) 1 tab DAILY PRN GTB CONSTIPATION; Start 08/27/16 at 11:30 Zolpidem Tartrate (Ambien) 5 mg QHS PRN GTB INSOMNIA Last administered on 23:05; Admin Dose 5 MG; Start 08/27/16 at 11:30 Diagnostic Test (Pha) (Accucheck) 1 ea 02 XX Last administered on 08/31/16 02: 09; Admin Dose 1 EA; Start 08/28/16 at 02:00 Miscellaneous Information 1 ea NOTE XX ; Start 08/27/16 at 11:30 Glucose (Glutose) 15 gm Q15M PRN PO DECREASED GLUCOSE; Start 08/27/16 at 11:30 Glucose (Glutose) 22.5 gm Q15M PRN PO DECREASED GLUCOSE; Start 08/27/16 at 11: 30 Dextrose (D50w Syringe) 25 ml Q15M PRN IV DECREASED GLUCOSE; Start 08/27/16 at 11:30 Dextrose (D50w Syringe) 50 ml Q15M PRN IV DECREASED GLUCOSE; Start 08/27/16 at 11:30 Glucagon (Glucagen) 1 mg Q15M PRN IM DECREASED GLUCOSE; Start 08/27/16 at 11:30 Glucose 15 gm 15 gm Q15M PRN BUCCAL DECREASED GLUCOSE; Start 08/27/16 at 11:30 Potassium Chloride/Sodium Chloride (1/2 NS + KCl 20 Meq) 1,000 ml @ 70 mls/hr [id number] IV Last administered on 09/01/16 06:43; Admin Dose 70 MLS/HR; Start at 12:00 Lorazepam 0.5 mg 0.5 mg Q12 PRN IV ANXIETY; Start 08/28/16 at 18:00 Cefepime HCl (Maxipime 2gm/50 ml (Pmx)) 50 ml @ 100 mls/hr Q12 IVPB Last administered on 09/01/16 09:36; Admin Dose 100 MLS/HR; Start 08/29/16 at 15:30 Insulin Glargine (Lantus) 20 unit QHS SC Last administered on 08/31/16 21:07; Admin Dose 20 UNIT; Start 08/30/16 at 21:00 Insulin Aspart (Adult SC Insulin - Mild Algorithm)... Q4 SC Last administered on 09/01/16 13:00; Admin Dose 3 UNIT; Start 08/30/16 at 17:00 Ferric Sodium Gluconate Complex/ Sodium Chloride (Ferrlecit/NS) 110 ml @ 110 mls/hr Q24H IVPB Last administered on 08/31/16 20:14; Admin Dose 110 MLS/HR; Start 08/30/16 at 17:30; Stop 09/03/16 at 18:29 Bumetanide (Bumex) 1 mg DAILY GTB Last administered on 09/01/16 09:18; Admin Dose 1 MG; Start 09/01/16 at 09:00 Jourdan Mercado DO Sep 01, 2016 15:16
[2016-09-01 17:31] LABS: ALBUMIN 2.8 g/dL (3.8-4.8)
[2016-09-01] MEDS: SOD FERRIC GLUC COMPLX 125 MG in SOD CHLORIDE 0.9% 100 ML IVPB SCH (18:36)
[2016-09-01] MEDS: DOXAZOSIN 2 MG TAB PO SCH (20:05)
[2016-09-01] MEDS: ZOLPIDEM 5 MG TAB GTB PRN ×2 (20:06→20:32)
[2016-09-02] MEDS ORDERED: INSULIN ASPART [NOVOLOG] 3 ML PEN SC SCH (07:35)
== END 2016-09-01 23:20 | DRG 811 ==
LOC: E/R 08:55 → MS2 12:24 → OBSVTOIN 08-28 10:58 → TEL 08-28 17:16 → PP2 09-01 12:17
PROVIDERS: ADMIT Internal Medicine; ATTEND Internal Medicine
PROC: 30233N1 Transfusion of Nonautologous Red Blood Cells into Peripheral Vein, Percutaneous Approach (ICD-10-PCS; principal; 2016-08-26)
DX: D62 Acute posthemorrhagic anemia (principal); I50.33 Acute on chronic diastolic (congestive) heart failure; J96.10 Chronic respiratory failure, unspecified whether with hypoxia or hypercapnia; E11.65 Type 2 diabetes mellitus with hyperglycemia; K92.2 Gastrointestinal hemorrhage, unspecified; N39.0 Urinary tract infection, site not specified; Z93.0 Tracheostomy status; Z86.73 Personal history of transient ischemic attack (TIA), and cerebral infarction without residual deficits; Z93.1 Gastrostomy status; G40.909 Epilepsy, unspecified, not intractable, without status epilepticus; Z87.891 Personal history of nicotine dependence; J40 Bronchitis, not specified as acute or chronic; I11.0 Hypertensive heart disease with heart failure; F41.9 Anxiety disorder, unspecified; R50.9 Fever, unspecified; B96.5 Pseudomonas (aeruginosa) (mallei) (pseudomallei) as the cause of diseases classified elsewhere
CPT/HCPCS: 36415; 36430; 71010; 74230; 80048; 80053; 82270; 82607; 82728; 82746; 82962; 83010; 83540; 83615; 83735; 84155; 84165; 84484; 85014; 85018; 85025; 85045; 85610; 85730; 86644; 86850; 86900; 86901; 86920; 87040; 87070; 87086; 92522; 92526; 92610; 92611; 93005; 94640; 94664; 96374; J1940; G0378; J1815; J2060; J2916; J3475; J3480; J7040; J7042; P9016

== ENCOUNTER 2016-10-20 14:22 | Inpatient (IN) | END 2016-10-29 15:55 | DRG 193 | DX: J18.9 Pneumonia, unspecified organism (principal); J96.21 Acute and chronic respiratory failure with hypoxia; I11.0 Hypertensive heart disease with heart failure; I50.32 Chronic diastolic (congestive) heart failure; D46.9 Myelodysplastic syndrome, unspecified; E11.42 Type 2 diabetes mellitus with diabetic polyneuropathy; D63.8 Anemia in other chronic diseases classified elsewhere; G40.909 Epilepsy, unspecified, not intractable, without status epilepticus; J44.9 Chronic obstructive pulmonary disease, unspecified; Y95 Nosocomial condition; Z86.73 Personal history of transient ischemic attack (TIA), and cerebral infarction without residual deficits; Z86.19 Personal history of other infectious and parasitic diseases; Z79.4 Long term (current) use of insulin; Z93.1 Gastrostomy status ==